=== PATIENT | female | born 1955 | race Caucasian/White ===

== ENCOUNTER → 2016-10-19 | Outpatient (CLI) | payer OTHER ==
[2014-09-25 10:19] VITALS: BP 113/61
== END ==
LOC: RAD 10:11
PROVIDERS: ATTEND Nurse Practitioner Family
DX: Z12.31 Encounter for screening mammogram for malignant neoplasm of breast (principal)
CPT/HCPCS: 77067

== ENCOUNTER → 2016-12-15 | Outpatient (CLI) | payer OTHER ==
[2014-09-25 10:19] VITALS: BP 113/61
== END ==
LOC: LAB 07:09
PROVIDERS: ATTEND Nurse Practitioner Family
DX: R06.02 Shortness of breath (principal)
CPT/HCPCS: 87070; 87205

== ENCOUNTER → 2017-01-02 | Outpatient (CLI) | payer OTHER ==
[2014-09-25 10:19] VITALS: BP 113/61
--- NOTE | 2017-01-02 10:41 | RAD ---
HISTORY: Fatigue Study: PA and lateral chest Comparison: June 18, 2016 Findings: The trachea is midline. The cardiac silhouette is unremarkable. The lungs are clear without focal infiltrate or effusion. The bony thorax is unremarkable. IMPRESSION: 1. No acute cardiopulmonary disease. Reported By:
== END ==
LOC: RAD 10:06
PROVIDERS: ATTEND Nurse Practitioner
DX: R53.83 Other fatigue (principal)
CPT/HCPCS: 71020

== ENCOUNTER → 2017-03-01 | Outpatient (CLI) | payer OTHER ==
[2014-09-25 10:19] VITALS: BP 113/61
--- NOTE | 2017-03-01 16:28 | MRI ---
HISTORY: LEFT ANKLE PAIN AND SWELLING. EXAM: NON CONTRAST MRI EXAM OF THE LEFT ANKLE. TECHNIQUE: Multisequence and multiplanar T1 and T2 weighted sequences of the left ankle were obtained without the administration of IV paramagnetic contrast at 1.5 Grazyna. COMPARISON: No recent comparisons. FINDINGS: The Achilles tendon is intact. The lateral ankle tendons are all intact the deltoid ligament is intac t there is a small subchondral cyst and low-grade osteochondral lesion seen in the talar dome on imag e number 18 of series 901 which measures 7 mm in greatest diameter. There is mild peroneal tendinosis with adjacent bimalleolar edema observed. There is fluid encircling the flexor digitorum longus tend on. No tendon subluxation is seen. The extensor ankle tendons are all intact. There is subchondral cy st formation seen within the lateral malleolus. However, there is diffuse bone marrow edema seen thro ughout the anterior calcaneus and calcaneal body involving the anterior/lateral process of the calcan eus with there is an associated fracture which may be stress related; this is best seen on image numb er 16 of series 701. There is diffuse fluid and altered signal throughout the sinus tarsus which woul d be compatible with concomitant sinus tarsus syndrome as well. The degree of marrow edema makes eval uation for calcaneonavicular coalition difficult but a small fibro-osseous coalition may be present. This will require further follow-up when the edema has improved. All there is also grade 2 ankle join t chondromalacia observed. Degenerative changes are all seen involving the subtalar joint. The planta r fascia is unremarkable in appearance. Bone marrow edema seen within the lateral cuneiform bone may be stress related as well. Dorsal foot edema is appreciated and there is edema throughout the lateral extensor musculature of the foot as well. The spring ligament is grossly intact. No other ankle join t abnormalities are identified on this exam. No artifact seen to suggest a foreign body. IMPRESSION: Linear fracture through the anterior/lateral process of the calcaneus which may be stress related or posttraumatic in nature; please correlate with clinical symptoms. This fracture does not demonstrate displacement, articular extension, or depression. Diffuse bone marrow edema throughout the anterior process of the calcaneus, calcaneal body, and later al cuneiform bone which is probably stress related. Low-grade osteochondral lesion of the talar dome, medially, which measures 7 mm. 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 This will require further follow-up when the edema has improved. Mild ankle and midfoot joint DJD is also observed. No other significant ankle abnormality is observed. Reported By:
== END | disposition home or self-care (01) ==
LOC: RAD 10:02
PROVIDERS: ATTEND Podiatrist Foot & Ankle Surgery
DX: M25.572 Pain in left ankle and joints of left foot (principal); S92.022A Displaced fracture of anterior process of left calcaneus, initial encounter for closed fracture; X58.XXXA Exposure to other specified factors, initial encounter; M94.8X7 Other specified disorders of cartilage, ankle and foot; M19.072 Primary osteoarthritis, left ankle and foot
CPT/HCPCS: 73721

== ENCOUNTER 2017-08-19 10:10 | Emergency (ER) | payer OTHER ==
[2017-08-19 10:24] VITALS: BP 158/73; BMI 38.0
--- NOTE | 2017-08-19 11:13 | DR.EXTPAIN ---
HPI - Time seen Time seen: 11:07 - PCP Primary Care Physician: FRANNY CHINO - Complaint/Symptoms Chief Complaint Doctor Comments: States she was trying to put her boot on because she has a stress fracture of her foot and got dizzy and went forward hitting her head on her oxygen tank this morning prior to coming to the emergency room. States she is having a severe left frontal headache. States this is the worst headache of her life. She denies blurred vision, numbness, nausea, vomiting or weakness. State she has COPD and always has SOB. She denies chest pain or LOC. States she has been able to walk since the fall. States the light hurts her eyes. States the pain is 8 of 10. Chief Complaint:: PT C/O TRYING TO PUT ON HER BOOT AND FALLING AND HITTING HER HEAD ON THE O2 TANK,, PT DENIES ANY LOC, PT C/O ISIDRO,,BR - Nurses notes reviewed Nurses Notes Review: Yes - Source History Provided: Patient - Mode of arrival Mode of Arrival: Wheelchair - Timing Onset of Chief Complaint: 08/19/17 - Context History of: None - Associated signs and symptoms Associated Signs and Symptoms: Headache PMH - PMH Past Medical History: Yes Past Medical History: Anxiety, COPD, Depression, Diabetes Past Medical History Comment: SLEEP APNEA , RLS, ? HEART PROBLEMS , SMALL BLOCKAGE, Past Surgical History: Yes Past Surgical History Comment: HYS, THYROIDECTOMY, ARMS, FEET, NECK AND SIDE, - Family History History of Family Medical Conditions: Yes Family Medical History: Cancer, Hypertension - Social History Does patient currently use any type of tobacco product: Yes Have you used tobacco products in the last 12 months: Yes Type of Tobacco Use: Cigarettes How many years tobacco product used: 44 Does any household member use tobacco: No Alcohol Use: None Do you use any recreational Drugs:: No Lives With: Family Lives Where: Home - infectious screening In the last 2 months have you had wt loss of >10#?: NO Have you had fever, night sweats or hemotysis?: No Have you traveled outside the country in the last 6 months?: No Isolation: Standard ROS - Review of Systems Constitutional: See HPI. negative: No Symptoms Reported, Chills, Diaphoresis, Fever, Malaise, Weakness, Irritable, Fatigue, Loss of Appetite, Other Eyes: No Symptoms Reported, Photophobia. negative: See HPI, Eye Pain, Blurred Vision, Tearing, Discharge, Diplopia, Other ENTM: No Symptoms Reported. negative: See HPI, Ear Pain, Ear Discharge, Pulling on Ears, Hearing Loss, Nose Pain, Nose Discharge, Epistaxis, Nose Congestion, Mouth Pain, Mouth Swelling, Loose Teeth, Drooling, Throat Pain, Throat Swelling, Ear Foreign Body Respiratoy: No Symptoms Reported. negative: See HPI, Productive Cough, Non- Productive Cough, Moist Cough, Dry Cough, Hacking Cough, Barking Cough, Brassy Cough, Orthopnea, Short of Breath, Stridor, Wheezing, Hemoptysis, Other Cardiovascular: No Symptoms Reported. negative: See HPI, Chest Pain, Edema, Palpitations, Syncope, Cyanosis, Skin Mottling, Other Gastrointestinal/Abdominal: No Symptoms Reported. negative: See HPI, Abdominal Pain, Constipation, Diarrhea, Nausea, Vomiting, Food Intolerance, Other Genitourinary: No Symptoms Reported. negative: See HPI, Discharge, Dysuria, Frequency, Hematuria, Pain, Bleeding, Other Neurological: No Symptoms Reported, Headache. negative: See HPI, Anxiety, Depressed, Emotional Problems, Numbness, Paresthesia, Pre-existing Deficit, Seizure, Tingling, Tremors, Weakness, Dizziness, Problems Walking, Speech Problem, Other Musculoskeletal: No Symptoms Reported Integumentary: No Symptoms Reported. negative: See HPI, Change in Color, Change in Hair/Nails, Dryness, Lesions, Lumps, Rash, Itching, Wound, Bruises, Juandice, Other Hematologic/Lymphatic: No Symptoms Reported. negative: See HPI, Anemia, Blood Clots, Easy Bleeding, Easy Bruising, Swollen Glands, Lymphadenopathy, Other Endocrine: No Symptoms Reported Psychiatric: No Symptoms Reported. negative: See HPI, Anxiety, Depression, Hallucinations, Excessive crying, Suicidal, Other PE - Vital Signs Vitals: Temperature 98.2 F Pulse Rate 82 Respiratory Rate 20 Blood Pressure 158/73 O2 Sat by Pulse Oximetry 94 - General Limitations: No Limitations General Appearance: Alert, In No Apparent Distress (moderate). negative: Appears Intoxicated, Anxious, Lethargic, Obtunded, In Distress, Obese, Cachectic , Other - Head Head Exam: Normal Inspection, Atraumatic (left frontal tenderness; no swelling or erythema), Normocephalic - Eyes Eye exam: Normal Appearance, PERRL, EOMI. negative: Scleral Icterus, Conjunctival Injection, Nystagmus, Miosis, Mydrasis, Periorbital Swelling, Periorbital Tenderness, Other - ENT ENT Exam: Normal Exam, Normal Oropharynx, Normal External Ear Exam, Mucous Membranes Moist, TM's Normal Bilaterally - Neck Neck Exam: Normal Inspection, Full ROM, Trachea Midline - Chest Chest Inspection: Normal Inspection, Symmetric Chest Wall Rise - Respiratory Respiratory Exam: Normal Lung Sounds Bilat. negative: Accessory Muscle Use, Chest Wall Tenderness, Prolonged Expiratory Phase, Respiratory Distress, Stridor , Other Respiratory Exam: Bilateral Clear to Auscultation - Cardiovascular Cardiovascular Exam: Regular Rate, Normal Rhythm, Normal Heart Sounds. negative : Bradycardia, Tachycardia, Irregular Rhythm, Systolic Murmur, Diastolic Murmur , Rubs, Gallop, Clicks, JVD, +S1, +S2, +S3, +S4, Other - Abdominal Exam Abdominal Exam: Normal Inspection, Normal Bowel Sounds, Soft. negative: Distention, Tenderness, Guarding, Rebound, Rigidity, Dimnished Bowel Sounds, Hyperactive Bowel Sounds, Hypoactive Bowel Sounds, Organomegaly, Trauma, Incision, Ascites, Mass, Bruit, Pulsatile Mass, Hernia, Other Abdominal Tenderness: negative: RUQ, RLQ, LUQ, LLQ, Epigastrium, Suprapubic, Diffuse, Mild, Moderate, Severe, Other - Extremities Extremities Exam: Normal Inspection, Full ROM, Normal Capillary Refill. negative: Tenderness, Edema, Joint Swelling, Calf Tenderness, Other - Upper Extremities Shoulder Exam: Normal Inspection, Full ROM. negative: Tenderness, Swelling, Abrasion, Laceration, Ecchymosis, Deformity, Crepitus, Dislocation, Erythema, Tenderness over AC Joint, Other Arm Exam: Normal Inspection, Full ROM. negative: Tenderness, Swelling, Abrasion , Laceration, Ecchymosis, Deformity, Crepitus, Erythema, Other Elbow Exam: Normal Inspection, Full ROM. negative: Tenderness, Swelling, Abrasion, Laceration, Ecchymosis, Deformity, Crepitus, Dislocation, Erythema, Effusion, Pain w/ pronation, Pain w/ Spuination, Tenderness over Radial Head, Other Forearm Exam: Normal Inspection, Full ROM. negative: Tenderness, Swelling, Abrasion, Laceration, Ecchymosis, Deformity, Crepitus, Erythema, Dislocation, Other Hand Exam: Normal Inspection, Full ROM. negative: Tenderness, Swelling, Abrasion, Laceration, Ecchymosis, Skin Avulsion, Deformity, Crepitus, Erythema, Dislocation, Amputation, Nail Avulsion, Subungual Hematoma, Other Neuromotor Exam: Normal Exam. negative: Wrist Extension, Thumb Opposition, Thumb IP Flexion, Thumb Adduction, Fingers 2-5 Abduction, Other Neurosensory Exam: Normal Exam Hand Tendon Exam: negative: Flexor Digitorium Profundus (Location), Flexor Digitorium Superficialis (Location), Extensor Tendon (Location), Other Upper Ext. Vascular Exam: Capillary Refill, Radial Pulse (normal) - Lower Extremities Hip/Pelvis Exam: Normal Inspection, Full ROM. negative: Tenderness, Swelling, Abrasion, Laceration, Ecchymosis, Deformity, Crepitus, Dislocation, Erythema, External Rotation, Internal Rotation, Shortening, Pelvis Stable, Other Upper Leg Exam: Normal Inspection, Full ROM. negative: Tenderness, Swelling, Abrasion, Laceration, Ecchymosis, Deformity, Crepitus, Dislocation, Erythema, Other Knee Exam: Normal Inspection, Full ROM. negative: Tenderness, Swelling, Abrasion, Laceration, Ecchymosis, Deformity, Crepitus, Dislocation, Erythema, Effusion, Anterior Drawer Sign, Posterior Draw Sign, Pain with Valgus, Laxity with Valgus, Pain with Varus, Knee Extension Intact, Other Lower Leg Exam: Normal Inspection, Full ROM. negative: Tenderness, Swelling, Abrasion, Laceration, Deformity, Ecchymosis, Crepitus, Dislocation, Erythema, Palpable Cord, Homans' Sign, Achilles Tendon Intact, Other Ankle Exam: Normal Inspection, Full ROM. negative: Tenderness, Swelling, Abrasion, Laceration, Ecchymosis, Deformity, Crepitus, Dislocation, Erythema, Tenderness over talofibular lig, Anterior Draw Sign, Other Foot/Toe Exam: Normal Inspection, Full ROM. negative: Tenderness, Swelling, Abrasion, Laceration, Ecchymosis, Deformity, Crepitus, Dislocation, Erythema, Amputation, Puncture Wound, Foreign Body, Calcaneal Tenderness, Nail Avulsion, Other Neurovascular/Tendon Exam: Normal Capillary Refill Gait Exam: Not Tested/Not Observed - Back Back Exam: Normal Inspection, Full ROM - Neurological Neurological Exam: Alert, Oriented X3, CN II-XII Intact, Reflexes Normal. negative: Normal Gait (gait not tested) - Psychiatric Psychiatric Exam: Normal Affect, Normal Mood. negative: Depressed, Agitated, Anxious, Flat Affect, Manic, Homicidal Ideation, Suicidal Ideation, Other - Skin Skin Exam: Warm, Dry, Intact, Normal Color Type of Lesion: negative: Rash, Abscess, Laceration, Foreign Body, Bite/Sting, Abrasion, Other Distribution: negative: Generalized, Involves Palms/Soles, Head, Face, Neck, Thorax, Chest, Back, Abdomen, Genitals, LUE, LLE, RUE, RLE, Other Description: negative: Size, Tenderness, Erythematous, Swelling, Macular, Papular, Vesicular, Blisters, Cofluent, Bullous, Petechial, Purpuric, Urticarial , Crusting, Discharge, Fluctuant, Indurated, Other ROR - Labs Reviewed Laboratory Results Reviewed?: Yes (All x-ray results reviewed and discussed with patient) - XRAY XRAY Interpreted by: Radiologist (CT head: No acute intracranial process can be identified.) - Diagnosis Discharge Problem: Contusion of other part of head, initial encounter Headache Qualifiers: Headache type: unspecified - Discharge Plan Disposition: 01 HOME, SELF-CARE Condition: Stable - Follow ups/Referrals Follow ups/Referrals: MALINI MIXON [Primary Care Provider] - 3 days - Instructions Instructions: Head Injury, Adult, Contusion
--- NOTE | 2017-08-19 11:43 | CT ---
HISTORY: Altered mental status Study: CT brain without contrast Comparison: None Technique: Multiple axial images of the brain were obtained from the skull base to the vertex without administra tion of IV contrast. Findings: No acute intraparenchymal hemorrhage or mass can be identified. No extra-axial fluid collections are seen. No alteration in the attenuation of the brain parenchyma can be identified to suggest acute o r subacute ischemic change. The ventricular system is symmetric and nondilated. The extracranial st ructures demonstrates some prominent nodes in the right parotid gland of uncertain etiology or signif icance. IMPRESSION: 1. No acute intracranial process can be identified. Reported By:
[2017-08-19] MEDS ORDERED: DEMEROL INJ IM ONE (12:11)
[2017-08-19] MEDS ORDERED: PHENERGAN INJ 25 MG IM ONE (12:12)
[2017-08-19] MEDS ORDERED: DEMEROL INJ ONE (12:25)
[2017-08-19] MEDS ORDERED: PHENERGAN INJ 25 MG ONE (12:25)
== END 2017-08-19 12:57 | disposition home or self-care (01) ==
LOC: ER 10:27
DX: S00.93XA Contusion of unspecified part of head, initial encounter (principal); R51 Headache; W01.198A Fall on same level from slipping, tripping and stumbling with subsequent striking against other object, initial encounter; Y92.9 Unspecified place or not applicable
CPT/HCPCS: 70450; 96372; 99282; 99283; J2175; J2550

== ENCOUNTER 2017-09-15 12:01 | Emergency (ER) | payer OTHER ==
[2017-09-15 12:11] VITALS: BMI 34.9
[2017-09-15] MEDS ORDERED: DUONEB 0.5 MG/3 MG NEB ONE (12:21)
--- NOTE | 2017-09-15 12:22 | DR.GENAD ---
HPI - Complaint/Symptoms Chief Complaint Doctors Comments: PATIENT Chief Complaint:: PT C/O WEAKNESS AND NOT FEELING WELL. PT STATES SHE HAS NOT BEEN FEELING WELL SINCE SHE GOT UP THIS AM. PT WAS BROUGHT IN BY EMS STAFF. PT IS VERY SLUGGISH WITH SPEACH AND NOTED HER PUPILS TO BE VERY SLUGGISH REACTING TO LIGHT. - Nurses notes reviewed Nurses Notes Review: Yes - Source History Provided: Patient - Mode of Arrival Mode of Arrival: Wheelchair - Timing Onset of Chief Complaint: 09/15/17 Came on: Suddenly - Duration Duration: Intermittent Duration: Hours - Severity Severity: Moderate PMH - PMH Past Medical History: Yes Past Medical History: Anxiety, COPD, Depression, Diabetes, Hypertension, Hypothyroidism Past Surgical History: Yes - Family History History of Family Medical Conditions: Yes Family Medical History: Cancer, Hypertension - Social History Does patient currently use any type of tobacco product: Yes Have you used tobacco products in the last 12 months: Yes Type of Tobacco Use: Cigarettes Does any household member use tobacco: Yes Alcohol Use: None Do you use any recreational Drugs:: No Lives With: Family Lives Where: Home - infectious screening In the last 2 months have you had wt loss of >10#?: NO Have you had fever, night sweats or hemotysis?: No Have you traveled outside the country in the last 6 months?: No Isolation: Standard PE - Vital Signs Vitals: Temperature 99.9 F Pulse Rate [Right Radial] 71 Pulse Rate 77 Respiratory Rate 20 Blood Pressure [Right Arm] 136/60 Blood Pressure 159/70 O2 Sat by Pulse Oximetry 95 ROR - Labs Reviewed Result Diagrams: 09/15/17 12:43 09/15/17 12:43 Laboratory: WBC 8.7 X10^3/uL (3.6-10.0) 09/15/17 12:43 RBC 4.34 X10^6/uL (3.5-5.4) 09/15/17 12:43 Hgb 12.2 g/dL (12.0-16.0) 09/15/17 12:43 Hct 36.2 % (36.0-47.0) 09/15/17 12:43 MCV 83.3 fL (80.0-100.0) 09/15/17 12:43 MCH 28.2 pg (27.0-34.0) 09/15/17 12:43 MCHC 33.8 g/dL (33.0-35.0) 09/15/17 12:43 RDW 15.4 % (11.6-16.5) 09/15/17 12:43 Plt Count 284 X10^3/uL (150.0-450.0) 09/15/17 12:43 MPV 7.6 fL (7.4-11.0) 09/15/17 12:43 Neut % (Auto) 69.1 % (42.0-75.0) 09/15/17 12:43 Lymph % (Auto) 25.2 % (21.0-51.0) 09/15/17 12:43 Harris % (Auto) 5.1 % (0.0-13.0) 09/15/17 12:43 Eos % (Auto) 0.1 % (0.9-2.9) L 09/15/17 12:43 Baso % (Auto) 0.5 % (0.2-1.0) 09/15/17 12:43 Neut # (Auto) 6.0 x10^3/uL (2.2-4.8) H 09/15/17 12:43 Lymph # (Auto) 2.2 X10^3/uL (1.3-2.9) 09/15/17 12:43 Harris # (Auto) 0.4 x10^3/uL (0.3-0.8) 09/15/17 12:43 Eos # (Auto) 0.0 x10^3/uL (0.0-0.2) 09/15/17 12:43 Baso # (Auto) 0.0 X10^3/uL (0.0-0.1) 09/15/17 12:43 Absolute Nucleated RBC 0.0 /100WBC 09/15/17 12:43 D-Dimer 594 ng/mL (0-400) H* 09/15/17 12:43 Sample Site rrad 09/15/17 12:25 ABG pH 7.360 (7.35-7.45) 09/15/17 12:25 ABG pCO2 52.0 mmHg (35.0-45.0) H* 09/15/17 12:25 ABG pO2 71.0 mmHg (80.0-100.0) L 09/15/17 12:25 ABG HCO3 29.4 mmol/L (22-26) H 09/15/17 12:25 ABG O2 Saturation 93.0 % (90-100) 09/15/17 12:25 ABG Base Excess 3.0 mmol/L (-2.0-2.0) H 09/15/17 12:25 Enoc Test pos 09/15/17 12:25 A-a Gradient 64.0 mmHg 09/15/17 12:25 FiO2 28.000 09/15/17 12:25 Blood Gas Comments etelvina well 09/15/17 12:25 Sodium 135 mmol/L (136-145) L 09/15/17 12:43 Corrected Sodium 137 mmol/L (136-145) 09/15/17 12:43 Potassium 4.9 mmol/L (3.5-5.1) 09/15/17 12:43 Chloride 99 mmol/L (98-107) 09/15/17 12:43 Carbon Dioxide 27.7 mmol/L (21-32) 09/15/17 12:43 BUN 18 mg/dL (7-18) 09/15/17 12:43 Creatinine 1.30 mg/dL (0.55-1.02) H 09/15/17 12:43 Est GFR (MDRD) Af Amer 54 (>60) L 09/15/17 12:43 Est GFR (MDRD) Non-Af 44 (>60) L 09/15/17 12:43 Glucose 202 mg/dL (65-99) H 09/15/17 12:43 Lactic Acid 2.3 mmol/L (0.4-2.0) H 09/15/17 12:43 Calcium 8.7 mg/dL (8.5-10.1) 09/15/17 12:43 Corrected Calcium 9.3 mg/dL (8.5-10.1) 09/15/17 12:43 Total Bilirubin 0.40 mg/dL (0.2-1.0) 09/15/17 12:43 AST 18 Units/L (15-37) 09/15/17 12:43 ALT 30 Units/L (12-78) 09/15/17 12:43 Alkaline Phosphatase 123 Units/L (46-116) H 09/15/17 12:43 Creatine Kinase 48 Units/L (26-192) 09/15/17 12:43 CK-MB (CK-2) < 1.0 ng/mL (0-4.0) 09/15/17 12:43 CK/CKMB % Calc 2.1 % (<4) 09/15/17 12:43 Troponin I < 0.02 ng/mL (0-1.5) 09/15/17 12:43 Total Protein 7.4 g/dL (6.4-8.2) 09/15/17 12:43 Albumin 3.3 g/dL (3.4-5.0) L 09/15/17 12:43 Globulin 4.1 g/dL (2.5-4.5) 09/15/17 12:43 Albumin/Globulin Ratio 0.8 Ratio (1.1-2.1) L 09/15/17 12:43 Specimen Type Catherized urine 09/15/17 13:11 Urine Color Dark yellow (YELLOW) 09/15/17 13:11 Urine Appearance Hazy (CLEAR) 09/15/17 13:11 Urine pH 5.0 (5.0 - 8.0) 09/15/17 13:11 Ur Specific [place] 1.025 (1.000-1.030) 09/15/17 13:11 Urine Protein 2+ (NEGATIVE) 09/15/17 13:11 Urine Glucose (UA) Negative (NEGATIVE) 09/15/17 13:11 Urine Ketones Negative (NEGATIVE) 09/15/17 13:11 Urine Occult Blood Negative (NEGATIVE) 09/15/17 13:11 Urine Nitrite Negative (NEGATIVE) 09/15/17 13:11 Urine Bilirubin Negative (NEGATIVE) 09/15/17 13:11 Urine Urobilinogen 1+ (NORMAL) 09/15/17 13:11 Ur Leukocyte Esterase 1+ (NEGATIVE) 09/15/17 13:11 Urine RBC None seen /HPF (NONE SEEN) 09/15/17 13:11 Urine WBC 0-2 /HPF (NONE SEEN) 09/15/17 13:11 Ur Squamous Epith Cells Few /HPF (NEGATIVE) 09/15/17 13:11 Urine Bacteria Negative /HPF (NEGATIVE) 09/15/17 13:11 Urine Mucus Few /HPF (NEGATIVE) 09/15/17 13:11 Ur Culture Indicated? No/not indicated 09/15/17 13:11 Urine Opiates Screen Positive (NEG=<300) A 09/15/17 13:11 Urine Methadone Screen Negative (NEG=<300) 09/15/17 13:11 Ur Barbiturates Screen Negative (NEG=<200) 09/15/17 13:11 Ur Phencyclidine Scrn Negative (NEG=<25) 09/15/17 13:11 Ur Amphetamines Screen Negative (NEG=<1000) 09/15/17 13:11 U Benzodiazepines Scrn Positive (NEG=<200) A 09/15/17 13:11 Urine Cocaine Screen Negative (NEG=<300) 09/15/17 13:11 U Marijuana (THC) Screen Negative (NEG=<50) 09/15/17 13:11 - Discharge Plan Disposition: 07 AGAINST MEDICAL ADVICE Condition: Stable - Follow ups/Referrals Follow ups/Referrals: MALINI MIXON [Primary Care Provider] - 3 days - Instructions
[2017-09-15 12:29] LABS: ABG HCO3 29.4 mmol/L (22-26)
[2017-09-15 12:30] LABS: ABG ALLEN TEST pos
--- NOTE | 2017-09-15 12:42 | RAD ---
Indication: Shortness of breath Exam: Portable chest Comparison: 01/02/2017 Findings: The heart is borderline enlarged but unchanged. The pulmonary vessels are normal. There is overlying EKG lead artifact. No consolidation or effusion is seen. The bones are intact. Impression: Overlying artifact otherwise, stable with no acute abnormality seen. Reported By:
--- NOTE | 2017-09-15 12:43 | CT ---
History: Altered mental status Study: CT head without contrast. Sagittal and coronal reformations were provided. Comparison: August 19, 2017 Findings: The ventricles and sulci are normal in size and configuration. There is no hemorrhage or ma ss or edema and there is no subdural collection of fluid. The calvarium is intact. The paranasal sinu ses are clear. There is a 1.17 cm subcutaneous nodule just inferior and anterior to the right externa l artery canal probably representing a lymph node. Impression: No acute intracranial disease Reported By:
[2017-09-15 13:01] LABS: BASOPHILS % (AUTO) 0.5 % (0.2-1.0); EOSINOPHILS % (AUTO) 0.1 % (0.9-2.9); HEMATOCRIT 36.2 % (36.0-47.0); HEMOGLOBIN 12.2 g/dL (12.0-16.0); LYMPHOCYTES # (AUTO) 2.2 X10^3/uL (1.3-2.9); LYMPHOCYTES % (AUTO) 25.2 % (21.0-51.0); MEAN CORPUSCULAR HEMOGLOBIN 28.2 pg (27.0-34.0); MEAN CORPUSCULAR HGB CONC 33.8 g/dL (33.0-35.0); MEAN CORPUSCULAR VOLUME 83.3 fL (80.0-100.0); MEAN PLATELET VOLUME 7.6 fL (7.4-11.0); MONOCYTES # (AUTO) 0.4 x10^3/uL (0.3-0.8); MONOCYTES % (AUTO) 5.1 % (0.0-13.0); NEUTROPHILS % (AUTO) 69.1 % (42.0-75.0); PLATELET COUNT 284 X10^3/uL (150.0-450.0); RED BLOOD COUNT 4.34 X10^6/uL (3.5-5.4); RED CELL DISTRIBUTION WIDTH 15.4 % (11.6-16.5); WHITE BLOOD COUNT 8.7 X10^3/uL (3.6-10.0)
[2017-09-15] MEDS ORDERED: DUONEB 0.5 MG/3 MG ONE (13:14)
[2017-09-15 13:20] LABS: BLOOD UREA NITROGEN 18 mg/dL (7-18); CALCIUM 8.7 mg/dL (8.5-10.1); CARBON DIOXIDE 27.7 mmol/L (21-32); CHLORIDE 99 mmol/L (98-107); COR NA(FOR HYPERGLY) 137 mmol/L (136-145); SODIUM 135 mmol/L (136-145); TROPONIN I < 0.02 ng/mL (0-1.5); eGFR BLACK RACES 54 (>60); eGFR NON BLACK RACES 44 (>60)
[2017-09-15 13:21] LABS: BILIRUBIN,URINE NEGATIVE (NEGATIVE); BLOOD/HEMOGLOBIN,URINE NEGATIVE (NEGATIVE); GLUCOSE, URINE NEGATIVE (NEGATIVE); KETONES,URINE NEGATIVE (NEGATIVE); LEUKOCYTE ESTERASE ,URINE 1+ (NEGATIVE); NITRITES,URINE NEGATIVE (NEGATIVE); PROTEIN,URINE 2+ (NEGATIVE); UROBILINOGEN,URINE 1+ (NORMAL)
[2017-09-15 13:24] LABS: ALANINE AMINOTRANSFERASE 30 Units/L (12-78); ALBUMIN 3.3 g/dL (3.4-5.0); ALKALINE PHOSPHATASE 123 Units/L (46-116); ASPARTATE AMINO TRANSFERASE 18 Units/L (15-37); CKMB % 2.1 % (<4); COR CA(FOR HYPOALB) 9.3 mg/dL (8.5-10.1); CREATINE KINASE 48 Units/L (26-192); CREATINE KINASE MB < 1.0 ng/mL (0-4.0); TOTAL PROTEIN 7.4 g/dL (6.4-8.2)
[2017-09-15 13:30] LABS: APPEARANCE,URINE HAZY (CLEAR); BACTERIA,URINE NEGATIVE /HPF (NEGATIVE); COLOR,URINE DARK YELLOW (YELLOW); MUCUS,URINE FEW /HPF (NEGATIVE); RBC,URINE NONE SEEN /HPF (NONE SEEN); SQUAMOUS EPITHELIAL CELL,UR FEW /HPF (NEGATIVE)
[2017-09-15] MEDS ORDERED: NS 100 ML IV 100 ML IV ONE (14:11)
[2017-09-15 14:20] VITALS: BP 136/60
--- NOTE | 2017-09-15 15:35 | CT ---
History: Shortness of breath and elevated D-dimer Study: CTA chest utilizing 70 mL Omnipaque 350 IV contrast. Sagittal and coronal and axial MIPS of th e pulmonary arteries were displayed. Findings: There is a minimal patchy infiltrate at the right lung base posteriorly. There is no effusi on. There is no mediastinal or hilar adenopathy demonstrated. No pulmonary embolus is demonstrated. T he visualized upper abdomen is unremarkable status post cholecystectomy. No significant bony abnormal ity is suggested. Impression: Minimal pneumonitis suggested at the right lung base posteriorly. 2. No evidence for pulmonary embolus Reported By:
== END 2017-09-15 16:55 | disposition left against medical advice (07) ==
LOC: ER 12:04
DX: R53.1 Weakness (principal)
CPT/HCPCS: 36415; 36600; 51702; 70450; 71045; 71275; 80053; 80307; 81001; 82550; 82553; 82803; 83605; 84484; 85025; 85378; 87040; 93005; 93010; 94640; 96365; 99282; 99283; A4222; G0434; J7620

== ENCOUNTER → 2017-10-02 | Outpatient (CLI) | payer OTHER ==
[2017-09-15 14:20] VITALS: BP 136/60
--- NOTE | 2017-10-02 09:58 | MRI ---
History: Ankle pain and history of stress fracture. Exam: Non contrast MRI exam of the left ankle. Technique: Multisequence and multiplanar T1 and T2 weighted sequences of the left ankle were obtained without the administration of IV paramagnetic contrast at 1.5 Grazyna. Comparison: March 01, 2017. Findings: There is a healing stress fracture of the anterior/lateral calcaneal process. The anterior/lateral ca lcaneal process is elongated and bowel no solid bony tarsal coalition is seen, a fibro-osseous coalit ion of the calcaneonavicular articulation could be present. There remain subchondral cyst formation s een within the distal fibula there is an unchanged low-grade 7 mm osteochondral lesion of the medial talar dome on image number 10 of series 1001. There are chronic tear is of the anterior talofibular l igament and calcaneofibular ligament. There is moderate distal tibia fibular joint osteoarthritis, po ssibly posttraumatic in nature. There is a chronic strain of the posterior talofibular ligament. Ther e is mild tendinosis and tenosynovitis of the posterior tibial and flexor digitorum longus tendons. M ild peroneal tendinosis is also seen. There is diffuse soft tissue swelling along the medial malleolu s and medial foot. The Lisfranc joint and Lisfranc ligament are grossly intact. There is [id number] rate ankle and midfoot joint DJD. The degree of bone marrow edema seen throughout the midfoot and hin dfoot bones previously has essentially resolved. Nor other ankle joint injuries or changes from the p rior MRI observed. Impression: Healed stress fracture of the anterior/lateral calcaneal process with resolved bone marrow edema in t he midfoot bones and hindfoot bones as well. Diffuse soft tissue swelling/edema throughout the medial malleolus and medial foot with moderate midf oot and ankle joint osteoarthritis/degenerative change. Stable low-grade 7 mm osteochondral lesion of the medial talar dome. Mild tendinosis and tenosynovitis of the posterior tibial and FDL tendons. Chronic/old injuries/tears of the anterior talofibular ligament and calcaneofibular ligament with mod erate distal tibiofibular joint osteoarthritis. Distal fibular subchondral cyst formation. 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 No other changes observed. Reported By:
== END | disposition home or self-care (01) ==
LOC: RAD 08:13
PROVIDERS: ATTEND Orthopaedic Surgery
DX: M25.572 Pain in left ankle and joints of left foot (principal); R60.0 Localized edema
CPT/HCPCS: 73721

== ENCOUNTER 2018-01-12 13:44 | Inpatient (IN) ==
--- NOTE | 2018-01-12 16:56 | RAD ---
HISTORY: Acute on chronic shortness of breath. Study: Portable chest. Comparison: Chest x-ray dated September 15, 2017. Findings: The trachea is midline. The cardiac silhouette is unchanged. No obvious focal consolidation, pleura l effusion, or pneumothorax. The bony thorax is unremarkable. IMPRESSION: No acute cardiopulmonary disease. Reported By:
[2018-01-12 17:05] LABS: BASOPHILS # (AUTO) 0.1 X10^3/uL (0.0-0.1); BASOPHILS % (AUTO) 0.9 % (0.2-1.0); EOSINOPHILS % (AUTO) 0.1 % (0.9-2.9); HEMATOCRIT 36.8 % (36.0-47.0); HEMOGLOBIN 12.3 g/dL (12.0-16.0); LYMPHOCYTES # (AUTO) 2.2 X10^3/uL (1.3-2.9); LYMPHOCYTES % (AUTO) 22.7 % (21.0-51.0); MEAN CORPUSCULAR HEMOGLOBIN 27.6 pg (27.0-34.0); MEAN CORPUSCULAR HGB CONC 33.4 g/dL (33.0-35.0); MEAN CORPUSCULAR VOLUME 82.6 fL (80.0-100.0); MEAN PLATELET VOLUME 7.4 fL (7.4-11.0); MONOCYTES # (AUTO) 0.4 x10^3/uL (0.3-0.8); MONOCYTES % (AUTO) 4.2 % (0.0-13.0); NEUTROPHILS # (AUTO) 6.9 x10^3/uL (2.2-4.8); NEUTROPHILS % (AUTO) 72.1 % (42.0-75.0); PLATELET COUNT 296 X10^3/uL (150.0-450.0); RED BLOOD COUNT 4.45 X10^6/uL (3.5-5.4); RED CELL DISTRIBUTION WIDTH 15.7 % (11.6-16.5); WHITE BLOOD COUNT 9.5 X10^3/uL (3.6-10.0)
--- NOTE | 2018-01-12 17:11 | DR.SOBA ---
HPI Time Seen Time Seen by Provider: 01/12/18 16:50 Primary Care Physician Primary Care Physician: AMOS MORALES HPI Comment HPI Comment: SEE IN NEIGHBORHOOD COORDINATOR OFFICE FOUND TO HAVE INFLAME THROAT. STREP TEST NEGATIVE. PATIENT CONTINUE TO HAVE PRODUCTIVE COUGH, CLEAR SPUTUM. NO FEVER. SOB WORSE TODAY. STARTED HAVING HOARSENESS. Complaints Chief Complaint Doctors Comments: INCREASING SOB AND PRODUCTIVE COUGH TIMES SEVERAL DAY. SOB WORSE TODAY. Chief Complaint:: SOB- REFERRED BY AMOS MORALES Reviewed Nurses Notes Reviewed: Yes Source History Provided: Patient Mode of Arrival Mode of Arrival: Ambulatory Timing Onset of Chief Complaint: 01/12/18 Duration Duration: Days Context Onset:: At Rest and With Light Exertion PE Risk Factors:: None History of:: COPD and CHF Currently on:: Inhaled Bronchodilators Prehospital Care:: Inhaled B2 Modifying Factors Worsens:: Lying Flat and Other (COUGHING.) Associated Signs and Symptoms Associated Signs and Symptoms: Cough, Sore Throat and Chest Pain If Chest Pain Quality: Pleuritic (TIGHTNESS.) Location: Right Upper Chest, Right Lower Chest, Left Upper Chest, Left Lower Chest and Chest Wall If Cough Cough: Productive and Clear PMH PMH Past Medical History: Yes Past Medical History: Anxiety, CHF, COPD, Depression, Diabetes, Hypertension and Hypothyroidism Past Surgical History: Yes Surgical History: Hysterectomy, Ortho Surgery and Thyroidectomy Past Surgical History Comment: BACK OF NECK LEFT SIDE OF NECK FEET YAAKOV ARM SURGERY BACK SURGERY X 4 Family History History of Family Medical Conditions: Yes Family Medical History: Cancer and Hypertension Social History Does patient currently use any type of tobacco product: Yes Have you used tobacco products in the last 12 months: Yes Type of Tobacco Use: Cigarettes How many years tobacco product used: 40 Does any household member use tobacco: Yes Alcohol Use: None Do you use any recreational Drugs:: No Lives With: Spouse Lives Where: Home infectious screening In the last 2 months have you had wt loss of >10#?: NO Have you had fever, night sweats or hemotysis?: No Have you traveled outside the country in the last 6 months?: No ROS Review of Systems Constitutional: Weakness and Fatigue Eyes: No Symptoms Reported ENTM: Nose Congestion and Throat Pain; negative Nose Discharge Respiratoy: Productive Cough and Short of Breath; negative Hemoptysis Cardiovascular: Chest Pain; negative Edema Genitourinary: No Symptoms Reported Neurological: No Symptoms Reported and Weakness Musculoskeletal: Muscle Pain Integumentary: No Symptoms Reported Hematologic/Lymphatic: Easy Bleeding and Easy Bruising Endocrine: negative Flushing Psychiatric: No Symptoms Reported All Other Systems: Reviewed and Negative PE Vital Signs Vitals: Temperature 97 F Pulse Rate [Apical] 64 Pulse Rate [Right Radial] 68 Pulse Rate 72 Respiratory Rate 20 Blood Pressure [Right Arm] 104/52 Blood Pressure 85/50 O2 Sat by Pulse Oximetry 95 General Limitations: No Limitations General Appearance: Alert, Anxious and In Distress Head Head Exam: Normal Inspection and Atraumatic Eyes Eye exam: Normal Appearance, PERRL and EOMI; negative Scleral Icterus and Conjunctival Injection ENT ENT Exam: Normal Exam, Normal External Ear Exam, Mucous Membranes Moist and TM' s Normal Bilaterally; negative Normal Oropharynx (THROAT RED. HORSENESS.) Neck Neck Exam: Normal Inspection and Trachea Midline Chest Chest Inspection: Normal Inspection and Symmetric Chest Wall Rise Respiratory Respiratory Exam: Bilateral: Rhonchi and Lower: Rhonchi Cardiovascular Cardiovascular Exam: Regular Rate, Normal Rhythm and Normal Heart Sounds Abdominal Exam Abdominal Exam: Normal Bowel Sounds and Soft; negative Tenderness Extremities Extremities Exam: Normal Inspection Back Back Exam: Paraspinal Tenderness Neurologic Neurological Exam: Alert, Oriented X3 and CN II-XII Intact; negative Motor Sensory Deficit Psychiatric Psychiatric Exam: Normal Affect and Normal Mood Skin Skin Exam: Warm, Dry, Intact and Normal Color MDM Additional Information Obtained Additional Information Obtained From: Family Differential Diagnosis Differential Diagnosis: CHF, COPD, Mycardial Infarction, Pneumonia, Pneumothorax , Pulmonary embolism, Respiratory Insufficiency, Sinusitis and URI COURSE Treatment Treatment: SEE ORDERS. PATIENT DID NOT WISH TO BE ADMITTED TO HOSPITAL FOR OBS. SIGN TO INDICATE INFORME CONSENT. Education/Counseling Education/Counseling: Patient, Family and Education Educated On: Diagnosis and Needs for Follow Up ROR Labs Reviewed Laboratory Results Reviewed?: Yes Result Diagrams: 01/13/18 06:00 01/13/18 06:00 Laboratory: WBC 6.6 X10^3/uL (3.6-10.0) 01/13/18 06:00 RBC 4.29 X10^6/uL (3.5-5.4) 01/13/18 06:00 Hgb 11.9 g/dL (12.0-16.0) L 01/13/18 06:00 Hct 36.2 % (36.0-47.0) 01/13/18 06:00 MCV 84.3 fL (80.0-100.0) 01/13/18 06:00 MCH 27.6 pg (27.0-34.0) 01/13/18 06:00 MCHC 32.8 g/dL (33.0-35.0) L 01/13/18 06:00 RDW 16.0 % (11.6-16.5) 01/13/18 06:00 Plt Count 260 X10^3/uL (150.0-450.0) 01/13/18 06:00 MPV 7.5 fL (7.4-11.0) 01/13/18 06:00 Neut % (Auto) 63.1 % (42.0-75.0) 01/13/18 06:00 Lymph % (Auto) 31.0 % (21.0-51.0) 01/13/18 06:00 [place] % (Auto) 5.5 % (0.0-13.0) 01/13/18 06:00 Eos % (Auto) 0.2 % (0.9-2.9) L 01/13/18 06:00 Baso % (Auto) 0.2 % (0.2-1.0) 01/13/18 06:00 Neut # (Auto) 4.2 x10^3/uL (2.2-4.8) 01/13/18 06:00 Lymph # (Auto) 2.0 X10^3/uL (1.3-2.9) 01/13/18 06:00 [place] # (Auto) 0.4 x10^3/uL (0.3-0.8) 01/13/18 06:00 Eos # (Auto) 0.0 x10^3/uL (0.0-0.2) 01/13/18 06:00 Baso # (Auto) 0.0 X10^3/uL (0.0-0.1) 01/13/18 06:00 Absolute Nucleated RBC 0.0 /100WBC 01/13/18 06:00 D-Dimer 220 ng/mL (0-400) 01/12/18 16:55 Sample Site Rr 01/12/18 17:00 ABG pH 7.360 (7.35-7.45) 01/12/18 17:00 ABG pCO2 57.0 mmHg (35.0-45.0) H* 01/12/18 17:00 ABG pO2 70.0 mmHg (80.0-100.0) L 01/12/18 17:00 ABG HCO3 32.2 mmol/L (22-26) H* 01/12/18 17:00 ABG O2 Saturation 93.0 % (90-100) 01/12/18 17:00 ABG Base Excess 5.3 mmol/L (-2.0-2.0) H 01/12/18 17:00 Enoc Test Pos 01/12/18 17:00 A-a Gradient 87.0 mmHg 01/12/18 17:00 FiO2 32.000 01/12/18 17:00 Blood Gas Comments Merlyn well ej 01/12/18 17:00 Sodium 139 mmol/L (136-145) 01/13/18 06:00 Corrected Sodium 141 mmol/L (136-145) 01/13/18 06:00 Potassium 4.6 mmol/L (3.5-5.1) 01/13/18 06:00 Chloride 104 mmol/L (98-107) 01/13/18 06:00 Carbon Dioxide 31.1 mmol/L (21-32) 01/13/18 06:00 BUN 16 mg/dL (7-18) 01/13/18 06:00 Creatinine 1.07 mg/dL (0.55-1.02) H 01/13/18 06:00 Est GFR (MDRD) Af Amer > 60 (>60) 01/13/18 06:00 Est GFR (MDRD) Non-Af 55 (>60) L 01/13/18 06:00 Glucose 164 mg/dL (65-99) H 01/13/18 06:00 POC Glucose (mg/dL) 159 mg/dL (65-99) H 01/13/18 05:56 Lactic Acid 0.9 mmol/L (0.4-2.0) 01/12/18 23:48 Calcium 7.9 mg/dL (8.5-10.1) L 01/13/18 06:00 Corrected Calcium 8.9 mg/dL (8.5-10.1) 01/13/18 06:00 Total Bilirubin 0.40 mg/dL (0.2-1.0) 01/13/18 06:00 AST 14 Units/L (15-37) L 01/13/18 06:00 ALT 50 Units/L (12-78) 01/13/18 06:00 Alkaline Phosphatase 151 Units/L (46-116) H 01/13/18 06:00 Creatine Kinase 42 Units/L (26-192) 01/13/18 06:00 CK-MB (CK-2) < 1.0 ng/mL (0-4.0) 01/13/18 06:00 CK/CKMB % Calc 2.4 % (<4) 01/13/18 06:00 Troponin I < 0.02 ng/mL (0-1.5) 01/13/18 06:00 B-Natriuretic Peptide 26.9 pg/mL (0-79) 01/12/18 16:55 Total Protein 6.4 g/dL (6.4-8.2) 01/13/18 06:00 Albumin 2.7 g/dL (3.4-5.0) L 01/13/18 06:00 Globulin 3.7 g/dL (2.5-4.5) 01/13/18 06:00 Albumin/Globulin Ratio 0.7 Ratio (1.1-2.1) L 01/13/18 06:00 Specimen Type Catherized urine 01/12/18 23:44 Urine Color Yellow (YELLOW) 01/12/18 23:44 Urine Appearance Clear (CLEAR) 01/12/18 23:44 Urine pH 6.0 (5.0 - 8.0) 01/12/18 23:44 Ur Specific [place] 1.010 (1.000-1.030) 01/12/18 23:44 Urine Protein 1+ (NEGATIVE) 01/12/18 23:44 Urine Glucose (UA) Negative (NEGATIVE) 01/12/18 23:44 Urine Ketones Negative (NEGATIVE) 01/12/18 23:44 Urine Occult Blood Negative (NEGATIVE) 01/12/18 23:44 Urine Nitrite Negative (NEGATIVE) 01/12/18 23:44 Urine Bilirubin Negative (NEGATIVE) 01/12/18 23:44 Urine Urobilinogen Normal (NORMAL) 01/12/18 23:44 Ur Leukocyte Esterase Negative (NEGATIVE) 01/12/18 23:44 Urine RBC None seen /HPF (NONE SEEN) 01/12/18 23:44 Urine WBC None seen /HPF (NONE SEEN) 01/12/18 23:44 Ur Squamous Epith Cells Rare /HPF (NEGATIVE) 01/12/18 23:44 Amorphous Sediment Trace /HPF (NEGATIVE) 01/12/18 23:44 Urine Bacteria Negative /HPF (NEGATIVE) 01/12/18 23:44 Urine Mucus Rare /HPF (NEGATIVE) 01/12/18 23:44 Ur Culture Indicated? No/not indicated 01/12/18 23:44 Urine Opiates Screen Negative (NEG=<300) 01/12/18 23:44 Urine Methadone Screen Negative (NEG=<300) 01/12/18 23:44 Ur Barbiturates Screen Negative (NEG=<200) 01/12/18 23:44 Ur Phencyclidine Scrn Negative (NEG=<25) 01/12/18 23:44 Ur Amphetamines Screen Negative (NEG=<1000) 01/12/18 23:44 U Benzodiazepines Scrn Positive (NEG=<200) A 01/12/18 23:44 Urine Cocaine Screen Negative (NEG=<300) 01/12/18 23:44 U Marijuana (THC) Screen Negative (NEG=<50) 01/12/18 23:44 Monoscreen Negative (NEGATIVE) 01/12/18 16:55 S. pyogenes (TEM-PCR) Not detected (NOT DETECT) 01/12/18 17:59 XRAY XRAY Interpreted by: Radiologist XRAY Findings: REPORT DISCUSS WITH PATIENT. EKG Rate: 70 [place]: Normal Rhythm: NSR Block: None Hypertrophy: None ST: Normal Diagnosis Discharge Problem: Pneumonia, Chest pain, COPD with respiratory distress, acute, Left against medical advice
[2018-01-12 17:17] LABS: ABG BASE EXCESS 5.3 mmol/L (-2.0-2.0)
[2018-01-12 17:19] LABS: ABG ALLEN TEST POS; ABG HCO3 32.2 mmol/L (22-26)
[2018-01-12 17:20] LABS: B-TYPE NATRIURETIC PEPTIDE 26.9 pg/mL (0-79)
[2018-01-12 17:21] LABS: BLOOD UREA NITROGEN 16 mg/dL (7-18); CALCIUM 8.2 mg/dL (8.5-10.1); CARBON DIOXIDE 32.1 mmol/L (21-32); CHLORIDE 99 mmol/L (98-107); COR NA(FOR HYPERGLY) 135 mmol/L (136-145); CREATININE 1.29 mg/dL (0.55-1.02); SODIUM 135 mmol/L (136-145); TROPONIN I < 0.02 ng/mL (0-1.5); eGFR NON BLACK RACES 45 (>60)
[2018-01-12 17:25] LABS: ALANINE AMINOTRANSFERASE 59 Units/L (12-78); ALBUMIN 2.9 g/dL (3.4-5.0); ALKALINE PHOSPHATASE 167 Units/L (46-116); ASPARTATE AMINO TRANSFERASE 19 Units/L (15-37); CKMB % 2.5 % (<4); COR CA(FOR HYPOALB) 9.1 mg/dL (8.5-10.1); CREATINE KINASE 40 Units/L (26-192); CREATINE KINASE MB < 1.0 ng/mL (0-4.0); TOTAL PROTEIN 6.8 g/dL (6.4-8.2)
[2018-01-12] MEDS ORDERED: ROCEPHIN VIAL 1 GRAM IM ONE (18:19)
[2018-01-12] MEDS ORDERED: TESSALON PERLES PO ONE (18:20)
[2018-01-12] MEDS ORDERED: NS 1000 ML 1,000 ML ONE ×2 (18:58→22:31)
[2018-01-12] MEDS ORDERED: NS 1000 ML 1,000 ML IV ONE ×2 (19:05→22:28)
[2018-01-12] MEDS ORDERED: ROCEPHIN 1 GRAM IV PREMIX 1 G/50 ML IV.SOLN. IV ONE (19:05)
[2018-01-12] MEDS ORDERED: ROCEPHIN VIAL 1 GRAM ONE (19:06)
[2018-01-12] MEDS ORDERED: NS 100 ML IV + SPIKE MINIBAG* 100 ML IV ONE (19:06)
[2018-01-12] MEDS ORDERED: NS 100 ML IV 100 ML IV ONE (19:14)
--- NOTE | 2018-01-12 20:35 | CT ---
CTA chest Indication: Shortness of breath, denies chest pain Technique: Helical CT images of the chest were obtained with IV contrast. Reformatted images in the c oronal and sagittal planes and 3D MIP images were also generated for review. Comparison: 09/15/2017 Findings: Contrast bolus timing is adequate for detection of PTE. No pulmonary thromboembolus is iden tified. There is no pulmonary arterial dilatation or evidence of right heart strain. The heart is nor mal in size without significant pericardial effusion. The thoracic aorta and proximal great vessels a re normal in contour and caliber. The central airways are patent. There is no mediastinal or bulky hi lar lymphadenopathy. There is mild peribronchial thickening. There are patchy ground-glass opacities within the right midd le lobe. Streaky opacities within the dependent left lower lobe are favored to represent atelectasis. The remainder of the lungs are clear. No significant pleural effusion or pneumothorax is identified. Limited images of the upper abdomen show no acute abnormality. No aggressive osseous lesions are iden tified. Impression: No PTE identified. Mild peribronchial thickening, compatible with bronchitis and patchy ground-glass opacities within th e right middle lobe, suspicious for developing bronchopneumonitis. Reported By:
[2018-01-12] MEDS ORDERED: TORADOL 30 MG VIAL IVP STA (23:26)
[2018-01-12] MEDS ORDERED: TORADOL 30 MG VIAL ONE (23:50)
[2018-01-12 23:52] LABS: BILIRUBIN,URINE NEGATIVE (NEGATIVE); BLOOD/HEMOGLOBIN,URINE NEGATIVE (NEGATIVE); GLUCOSE, URINE NEGATIVE (NEGATIVE); KETONES,URINE NEGATIVE (NEGATIVE); LEUKOCYTE ESTERASE ,URINE NEGATIVE (NEGATIVE); NITRITES,URINE NEGATIVE (NEGATIVE); PROTEIN,URINE 1+ (NEGATIVE); UROBILINOGEN,URINE NORMAL (NORMAL)
[2018-01-12 23:53] LABS: APPEARANCE,URINE CLEAR (CLEAR); COLOR,URINE YELLOW (YELLOW)
[2018-01-12 23:58] LABS: AMORPHOUS SEDIMENT,UR TRACE /HPF (NEGATIVE); BACTERIA,URINE NEGATIVE /HPF (NEGATIVE); MUCUS,URINE RARE /HPF (NEGATIVE); RBC,URINE NONE SEEN /HPF (NONE SEEN); SQUAMOUS EPITHELIAL CELL,UR RARE /HPF (NEGATIVE)
[2018-01-13] MEDS ORDERED: NS 500 ML IV 500 ML IV ONE (00:24)
[2018-01-13] MEDS ORDERED: NS 1000 ML 1,000 ML ONE (00:25)
[2018-01-13] MEDS ORDERED: DOPAMINE IV PREMIX 400 MG/250 ML 400 MG/250 ML BAG IV PRN (00:47)
[2018-01-13 02:22] LABS: CKMB % 2.3 % (<4); CREATINE KINASE 44 Units/L (26-192); CREATINE KINASE MB < 1.0 ng/mL (0-4.0); TROPONIN I < 0.02 ng/mL (0-1.5)
[2018-01-13] MEDS ORDERED: TORADOL 30 MG VIAL IVP PRN (03:00)
[2018-01-13] MEDS ORDERED: STERILE WATER IRRIGATION IR ONE (03:18)
[2018-01-13] MEDS ORDERED: NICOTINE PATCH TD ONE (03:18)
[2018-01-13] MEDS: NICOTINE PATCH TD SCH ×3 (03:37→23:09)
[2018-01-13] MEDS: NS 1000 ML 1,000 ML IV SCH (05:15)
[2018-01-13 06:46] LABS: BASOPHILS % (AUTO) 0.2 % (0.2-1.0); EOSINOPHILS % (AUTO) 0.2 % (0.9-2.9); HEMATOCRIT 36.2 % (36.0-47.0); HEMOGLOBIN 11.9 g/dL (12.0-16.0); MEAN CORPUSCULAR HEMOGLOBIN 27.6 pg (27.0-34.0); MEAN CORPUSCULAR HGB CONC 32.8 g/dL (33.0-35.0); MEAN CORPUSCULAR VOLUME 84.3 fL (80.0-100.0); MEAN PLATELET VOLUME 7.5 fL (7.4-11.0); MONOCYTES # (AUTO) 0.4 x10^3/uL (0.3-0.8); MONOCYTES % (AUTO) 5.5 % (0.0-13.0); NEUTROPHILS # (AUTO) 4.2 x10^3/uL (2.2-4.8); NEUTROPHILS % (AUTO) 63.1 % (42.0-75.0); PLATELET COUNT 260 X10^3/uL (150.0-450.0); RED BLOOD COUNT 4.29 X10^6/uL (3.5-5.4); WHITE BLOOD COUNT 6.6 X10^3/uL (3.6-10.0)
[2018-01-13 07:16] LABS: CREATINE KINASE 42 Units/L (26-192); CREATINE KINASE MB < 1.0 ng/mL (0-4.0); TROPONIN I < 0.02 ng/mL (0-1.5)
[2018-01-13 07:19] LABS: CKMB % 2.4 % (<4)
[2018-01-13 07:20] LABS: ALANINE AMINOTRANSFERASE 50 Units/L (12-78); ALBUMIN 2.7 g/dL (3.4-5.0); ALKALINE PHOSPHATASE 151 Units/L (46-116); ASPARTATE AMINO TRANSFERASE 14 Units/L (15-37); BLOOD UREA NITROGEN 16 mg/dL (7-18); CALCIUM 7.9 mg/dL (8.5-10.1); CARBON DIOXIDE 31.1 mmol/L (21-32); CHLORIDE 104 mmol/L (98-107); COR CA(FOR HYPOALB) 8.9 mg/dL (8.5-10.1); COR NA(FOR HYPERGLY) 141 mmol/L (136-145); CREATININE 1.07 mg/dL (0.55-1.02); SODIUM 139 mmol/L (136-145); TOTAL PROTEIN 6.4 g/dL (6.4-8.2); eGFR NON BLACK RACES 55 (>60)
[2018-01-13 08:30] LABS: CHOL/HDL RATIO 6.1 (0.0-5.0)
[2018-01-13] MEDS: PROTONIX INJ 40 MG VIAL IVP SCH (08:44)
[2018-01-13] MEDS: LOVENOX INJ 30 MG SYR SC SCH (08:45)
[2018-01-13] MEDS ORDERED: LOVENOX INJ 40 MG SYR SC SCH (09:00)
[2018-01-13] MEDS ORDERED: ZOFRAN TAB 4 MG PO PRN (09:17)
[2018-01-13] MEDS: PULMICORT NEB TX 0.5 MG NEB SCH ×3 (09:35→20:53)
[2018-01-13 09:41] LABS: ABG ALLEN TEST POS
[2018-01-13] MEDS: K-DUR TAB 20 MEQ PO SCH (09:42)
[2018-01-13] MEDS: PLAVIX PO SCH (09:42)
[2018-01-13] MEDS: LEVAQUIN PREMIX IV 750 MG 750 MG/150 ML BAG IV SCH (09:43)
[2018-01-13] MEDS: NS 500 ML IV 500 ML IV SCH (09:43)
[2018-01-13] MEDS ORDERED: TYLENOL 500 MG TAB EXTRA STRENGTH PO PRN ×2 (10:53→17:00)
[2018-01-13] MEDS: HumuLIN R SUBCUT PRN ×3 (11:08→21:20)
[2018-01-13] MEDS: ZOSYN VIAL 3.375 GRAMS 3.375 G in NS 100 ML IV + SPIKE MINIBAG* 100 ML IV SCH ×3 (11:39→21:21)
--- NOTE | 2018-01-13 11:53 | DR.H&P ---
H&P - History & Physical for Day of: H&P Date: 01/13/18 - Chief Complaint Chief Complaint: SOB - History of Present Illness History of Present Illness: 63 WF ER ADMISSION AFTER PRESENTING WITH CO SOB, WORSE OVER LAST DAY. PT WAS PREVIOUSLY SEEN BY HER PCP WITH SORE THROAT AND URI SYMPTOMS. PT HAS PMH OF COPD. PT EVALUATED IN ER, HAD CTA CHEST REVEALING BRONCHONCHITIS, BRONCHOPNEUMONIA. PT HYPOTENSIVE AND STARTED ON DOPAMINE DRIP, PT CO NORMALLY OF HTN. PT ADMITTED TO ICU FOR TREATMENT OF ACUTE RESP ILLNESS AND HYPOTENSION. - Past Medical History Past Medical History: Anxiety, Arthritis, CHF, COPD, Depression, Diabetes, Hypertension, Hypothyroidism - Past Surgical History Surgical History: Hysterectomy, Ortho Surgery, Thyroidectomy - Family History Family Medical History: Cancer, Hypertension - Social History Does patient currently use any type of tobacco product: Yes Have you used tobacco products in the last 12 months: Yes Type of Tobacco Use: Cigarettes How many years tobacco product used: 40 Does any household member use tobacco: Yes Alcohol Use: None Drug Use: None - Medications Home Medications: metoprolol Allergy (Verified 01/12/18 14:08) CONTINUE taking the following medications albuterol sulfate [ProAir HFA] 2 puff INHALATION Q4-6H PRN 01/12/18 [History] cholecalciferol (vitamin D3) [Vitamin D3] 5,000 unit PO QWEEK 01/12/18 [History] glycopyrrolate-formoterol [Bevespi Aerosphere] 2 puff INHALATION BID 01/12/18 [ History] metformin 750 mg PO BID 01/12/18 [History] ondansetron 8 mg PO BID 01/12/18 [History] potassium chloride 20 meq PO QDAY 01/12/18 [History] clopidogrel 75 mg PO DAILY 01/13/18 [History] diazepam 2 mg PO HS 01/13/18 [History] doxepin 10 mg PO DAILY 01/13/18 [History] furosemide 40 mg PO DAILY PRN 01/13/18 [History] rosuvastatin 20 mg PO HS 01/13/18 [History] - Review of Systems Constitutional: Chills, Weakness Eyes: No Symptoms Reported ENT: Nose Discharge, Throat Pain Respiratory: Cough, Shortness of Breath, Wheezing Cardiovascular: No Symptoms Reported Gastrointestinal: Nausea Genitourinary: No Symptoms Reported Musculoskeletal: No Symptoms Reported Skin: No Symptoms Reported Neurological: No Symptoms Reported - Physical Exam Vital Signs: Temperature 97.3 F Pulse Rate [Apical] 67 Pulse Rate [Right Radial] 68 Pulse Rate 63 Respiratory Rate 22 Blood Pressure [Right Arm] 115/56 Blood Pressure 183/80 O2 Sat by Pulse Oximetry 98 Oriented: Normal Eyes: Normal Ear: Normal Nose: Normal Throat: Red, Dry Respiratory: Wheezes Throughout, RLL Diminished, LLL Diminished Cardiovascular: Normal : Normal Auscultation: Bowel Sounds: Normal Palpation: Normal Tenderness: Normal Skin: Decreased Turgur Musculoskeletal: Normal Psychiatric: Anxiety Affect: Anxious Speech Pattern: Clear, Appropriate - Assessment/Plan (1) Bronchopneumonia Status: Acute (2) Hypotension Status: Acute (3) COPD with respiratory distress, acute Status: Acute (4) Diabetes Status: Acute Plan: SSI, VERIFY HOME MEDS, BS AC HS - Allergies Allergies/Adverse Reactions: Allergies Allergy/AdvReac Type Severity Reaction Status Date / Time metoprolol Allergy Verified 01/12/18 14:08
[2018-01-13] MEDS: DUONEB 0.5 MG/3 MG NEB SCH ×3 (12:00→20:53)
[2018-01-13 14:02] LABS: CREATINE KINASE 35 Units/L (26-192); CREATINE KINASE MB < 1.0 ng/mL (0-4.0); TROPONIN I < 0.02 ng/mL (0-1.5)
[2018-01-13] MEDS: NORCO 7.5/325 MG TAB PO PRN ×2 (14:08→21:22)
[2018-01-13 14:37] LABS: CKMB % 2.9 % (<4)
[2018-01-13 14:56] VITALS: BMI 40.0
[2018-01-13] MEDS: CRESTOR TAB 10 MG PO SCH (21:22)
[2018-01-13] MEDS: RANEXA PO SCH (21:22)
[2018-01-13] MEDS: SNACK - Diabetic Appropriate PO SCH (21:23)
[2018-01-13] MEDS: NEURONTIN CAP 400 MG PO PRN (21:31)
[2018-01-13] MEDS: AMBIEN PO PRN (23:08)
[2018-01-14] MEDS: DUONEB 0.5 MG/3 MG NEB SCH ×6 (01:08→20:26)
[2018-01-14] MEDS: NS 1000 ML 1,000 ML IV SCH ×2 (02:07→04:42)
[2018-01-14 06:08] LABS: BASOPHILS % (AUTO) 0.2 % (0.2-1.0); EOSINOPHILS % (AUTO) 0.1 % (0.9-2.9); HEMATOCRIT 34.1 % (36.0-47.0); HEMOGLOBIN 11.2 g/dL (12.0-16.0); LYMPHOCYTES # (AUTO) 1.5 X10^3/uL (1.3-2.9); LYMPHOCYTES % (AUTO) 31.4 % (21.0-51.0); MEAN CORPUSCULAR HEMOGLOBIN 27.6 pg (27.0-34.0); MEAN CORPUSCULAR HGB CONC 32.9 g/dL (33.0-35.0); MEAN CORPUSCULAR VOLUME 83.9 fL (80.0-100.0); MEAN PLATELET VOLUME 7.5 fL (7.4-11.0); MONOCYTES # (AUTO) 0.3 x10^3/uL (0.3-0.8); MONOCYTES % (AUTO) 5.2 % (0.0-13.0); NEUTROPHILS % (AUTO) 63.1 % (42.0-75.0); PLATELET COUNT 240 X10^3/uL (150.0-450.0); RED BLOOD COUNT 4.06 X10^6/uL (3.5-5.4); WHITE BLOOD COUNT 4.8 X10^3/uL (3.6-10.0)
[2018-01-14] MEDS: HumuLIN R SUBCUT PRN (06:14)
[2018-01-14] MEDS: ZOSYN VIAL 3.375 GRAMS 3.375 G in NS 100 ML IV + SPIKE MINIBAG* 100 ML IV SCH ×3 (06:18→21:42)
[2018-01-14 06:24] LABS: ALANINE AMINOTRANSFERASE 41 Units/L (12-78); ALBUMIN 2.4 g/dL (3.4-5.0); ALKALINE PHOSPHATASE 132 Units/L (46-116); ASPARTATE AMINO TRANSFERASE 13 Units/L (15-37); BLOOD UREA NITROGEN 11 mg/dL (7-18); CALCIUM 7.8 mg/dL (8.5-10.1); CARBON DIOXIDE 32.3 mmol/L (21-32); CHLORIDE 106 mmol/L (98-107); COR CA(FOR HYPOALB) 9.1 mg/dL (8.5-10.1); COR NA(FOR HYPERGLY) 144 mmol/L (136-145); CREATININE 1.07 mg/dL (0.55-1.02); SODIUM 141 mmol/L (136-145); TOTAL PROTEIN 6.1 g/dL (6.4-8.2); eGFR NON BLACK RACES 55 (>60)
[2018-01-14] MEDS: PULMICORT NEB TX 0.5 MG NEB SCH ×2 (08:45→20:26)
[2018-01-14] MEDS: PLAVIX PO SCH (08:56)
[2018-01-14] MEDS: PROTONIX INJ 40 MG VIAL IVP SCH (08:56)
[2018-01-14] MEDS: K-DUR TAB 20 MEQ PO SCH (08:56)
[2018-01-14] MEDS: RANEXA PO SCH ×2 (08:57→21:43)
[2018-01-14] MEDS: SYNTHROID 75 mcg TAB PO SCH (08:57)
[2018-01-14] MEDS: PROzac PO SCH (08:57)
[2018-01-14] MEDS: LOVENOX INJ 30 MG SYR SC SCH (08:57)
[2018-01-14] MEDS ORDERED: PATIENT'S HOME MEDICATION (Omeprazole [Prilosec 40 Mg] 40 MG) PO SCH (09:00)
[2018-01-14] MEDS: NICOTINE PATCH TD SCH (09:01)
[2018-01-14] MEDS: MILK OF MAGNESIA PO SCH (09:02)
[2018-01-14] MEDS: LEVAQUIN PREMIX IV 750 MG 750 MG/150 ML BAG IV SCH (09:03)
[2018-01-14] MEDS: NS 500 ML IV 500 ML IV SCH (09:04)
[2018-01-14] MEDS: NORCO 7.5/325 MG TAB PO PRN ×2 (09:08→21:49)
[2018-01-14] MEDS ORDERED: ATARAX TAB 25 MG PO PRN (13:33)
[2018-01-14] MEDS ORDERED: MYLICON TAB 80 MG CHEW PO PRN (13:37)
--- NOTE | 2018-01-14 13:37 | PCM.PROG ---
Progress Note - Progress Note for Day of Date of Exam: 01/14/18 - Subjective Subjective: 63 WF ER ADMIT ON 01/13 WITH PNEUMONIA AND HYPOTENSION. CURRENTLY D/ CD FROM DOPAMINE DRIP. BP IMPROVED THIS AM 160/80, WILL RESUME LISINOPRIL AT 10MG PO DAILY. PT REPORTS ABD BLOATED, KUB ORDERED WITH RESULTS PENDING, WILL ADD SIMETHICONE. PT CONTINUE WITH SUPPLEMENTAL O2 AND IV ATBX. PT CO ANXIETY, CANNOT REST THIS AM - Past Medical Family Social History Past Med/Fam/Surg Hx: No changes since H&P Allergies: Allergies metoprolol Allergy (Verified 01/12/18 14:08) - Review of Systems ROS: No change since H&P - Vital Signs and I&O's Vital Signs: Temperature 97.8 F Pulse Rate [Apical] 72 Pulse Rate [Right Radial] 68 Pulse Rate 69 Respiratory Rate 20 Blood Pressure [Right Arm] 160/80 Blood Pressure 183/80 O2 Sat by Pulse Oximetry 98 Intake and Output: Intake & Output 01/12/18 01/13/18 01/14/18 01/15/18 11:59 11:59 11:59 11:59 Intake Total 951 / 951 2555 / 2555 Output Total 1100 / 1100 2650 / 2650 Balance -149 / -149 -95 / -95 - Physical Exam Oriented: Normal Eyes: Normal Ear: Normal Nose: Normal Throat: Red, Dry Respiratory: Diminished, Wheezes Cardiovascular: Normal : Normal Auscultation: Bowel Sounds: Normal Tenderness: Normal Skin: Decreased Turgur Musculoskeletal: Normal Psychiatric: Anxiety Affect: Anxious Speech Pattern: Clear, Appropriate - Laboratory and Diagnostics Result Diagrams: 01/14/18 05:39 01/14/18 05:39 Labs: 01/13/18 10:20 Sputum - Expectorated Sputum Sputum Culture - Final 01/13/18 10:20 Sputum - Expectorated Sputum - Final Laboratory WBC 4.8 X10^3/uL (3.6-10.0) 01/14/18 05:39 RBC 4.06 X10^6/uL (3.5-5.4) 01/14/18 05:39 Hgb 11.2 g/dL (12.0-16.0) L 01/14/18 05:39 Hct 34.1 % (36.0-47.0) L 01/14/18 05:39 MCV 83.9 fL (80.0-100.0) 01/14/18 05:39 MCH 27.6 pg (27.0-34.0) 01/14/18 05:39 MCHC 32.9 g/dL (33.0-35.0) L 01/14/18 05:39 RDW 16.0 % (11.6-16.5) 01/14/18 05:39 Plt Count 240 X10^3/uL (150.0-450.0) 01/14/18 05:39 MPV 7.5 fL (7.4-11.0) 01/14/18 05:39 Neut % (Auto) 63.1 % (42.0-75.0) 01/14/18 05:39 Lymph % (Auto) 31.4 % (21.0-51.0) 01/14/18 05:39 [place] % (Auto) 5.2 % (0.0-13.0) 01/14/18 05:39 Eos % (Auto) 0.1 % (0.9-2.9) L 01/14/18 05:39 Baso % (Auto) 0.2 % (0.2-1.0) 01/14/18 05:39 Neut # (Auto) 3.0 x10^3/uL (2.2-4.8) 01/14/18 05:39 Lymph # (Auto) 1.5 X10^3/uL (1.3-2.9) 01/14/18 05:39 [place] # (Auto) 0.3 x10^3/uL (0.3-0.8) 01/14/18 05:39 Eos # (Auto) 0.0 x10^3/uL (0.0-0.2) 01/14/18 05:39 Baso # (Auto) 0.0 X10^3/uL (0.0-0.1) 01/14/18 05:39 Absolute Nucleated RBC 0.0 /100WBC 01/14/18 05:39 D-Dimer 220 ng/mL (0-400) 01/12/18 16:55 Sample Site Rr 01/13/18 09:35 ABG pH 7.330 (7.35-7.45) L 01/13/18 09:35 ABG pCO2 55.0 mmHg (35.0-45.0) H* 01/13/18 09:35 ABG pO2 67.0 mmHg (80.0-100.0) L 01/13/18 09:35 ABG HCO3 29.0 mmol/L (22-26) H 01/13/18 09:35 ABG O2 Saturation 92.0 % (90-100) 01/13/18 09:35 ABG Base Excess 2.0 mmol/L (-2.0-2.0) 01/13/18 09:35 Enoc Test Pos 01/13/18 09:35 A-a Gradient 92.0 mmHg 01/13/18 09:35 FiO2 32.000 01/13/18 09:35 Blood Gas Comments Pt etelvina well. cdn 01/13/18 09:35 Sodium 141 mmol/L (136-145) 01/14/18 05:39 Corrected Sodium 144 mmol/L (136-145) 01/14/18 05:39 Potassium 4.7 mmol/L (3.5-5.1) 01/14/18 05:39 Chloride 106 mmol/L (98-107) 01/14/18 05:39 Carbon Dioxide 32.3 mmol/L (21-32) H 01/14/18 05:39 BUN 11 mg/dL (7-18) 01/14/18 05:39 Creatinine 1.07 mg/dL (0.55-1.02) H 01/14/18 05:39 Est GFR (MDRD) Af Amer > 60 (>60) 01/14/18 05:39 Est GFR (MDRD) Non-Af 55 (>60) L 01/14/18 05:39 Glucose 228 mg/dL (65-99) H 01/14/18 05:39 POC Glucose (mg/dL) 133 mg/dL (65-99) H 01/14/18 10:39 Lactic Acid 0.9 mmol/L (0.4-2.0) 01/12/18 23:48 Calcium 7.8 mg/dL (8.5-10.1) L 01/14/18 05:39 Corrected Calcium 9.1 mg/dL (8.5-10.1) 01/14/18 05:39 Total Bilirubin 0.30 mg/dL (0.2-1.0) 01/14/18 05:39 AST 13 Units/L (15-37) L 01/14/18 05:39 ALT 41 Units/L (12-78) 01/14/18 05:39 Alkaline Phosphatase 132 Units/L (46-116) H 01/14/18 05:39 Creatine Kinase 35 Units/L (26-192) 01/13/18 13:28 CK-MB (CK-2) < 1.0 ng/mL (0-4.0) 01/13/18 13:28 CK/CKMB % Calc 2.9 % (<4) 01/13/18 13:28 Troponin I < 0.02 ng/mL (0-1.5) 01/13/18 13:28 B-Natriuretic Peptide 26.9 pg/mL (0-79) 01/12/18 16:55 Total Protein 6.1 g/dL (6.4-8.2) L 01/14/18 05:39 Albumin 2.4 g/dL (3.4-5.0) L 01/14/18 05:39 Globulin 3.7 g/dL (2.5-4.5) 01/14/18 05:39 Albumin/Globulin Ratio 0.6 Ratio (1.1-2.1) L 01/14/18 05:39 Triglycerides 183 mg/dL (0-150) H 01/13/18 06:00 Cholesterol 178 mg/dL (0-200) 01/13/18 06:00 LDL Cholesterol, Calc 112 mg/dL (0-100) H 01/13/18 06:00 HDL Cholesterol 29 mg/dL (40-60) L 01/13/18 06:00 Cholesterol/HDL Ratio 6.1 (0.0-5.0) H 01/13/18 06:00 Specimen Type Catherized urine 01/12/18 23:44 Urine Color Yellow (YELLOW) 01/12/18 23:44 Urine Appearance Clear (CLEAR) 01/12/18 23:44 Urine pH 6.0 (5.0 - 8.0) 01/12/18 23:44 Ur Specific [place] 1.010 (1.000-1.030) 01/12/18 23:44 Urine Protein 1+ (NEGATIVE) 01/12/18 23:44 Urine Glucose (UA) Negative (NEGATIVE) 01/12/18 23:44 Urine Ketones Negative (NEGATIVE) 01/12/18 23:44 Urine Occult Blood Negative (NEGATIVE) 01/12/18 23:44 Urine Nitrite Negative (NEGATIVE) 01/12/18 23:44 Urine Bilirubin Negative (NEGATIVE) 01/12/18 23:44 Urine Urobilinogen Normal (NORMAL) 01/12/18 23:44 Ur Leukocyte Esterase Negative (NEGATIVE) 01/12/18 23:44 Urine RBC None seen /HPF (NONE SEEN) 01/12/18 23:44 Urine WBC None seen /HPF (NONE SEEN) 01/12/18 23:44 Ur Squamous Epith Cells Rare /HPF (NEGATIVE) 01/12/18 23:44 Amorphous Sediment Trace /HPF (NEGATIVE) 01/12/18 23:44 Urine Bacteria Negative /HPF (NEGATIVE) 01/12/18 23:44 Urine Mucus Rare /HPF (NEGATIVE) 01/12/18 23:44 Ur Culture Indicated? No/not indicated 01/12/18 23:44 Urine Opiates Screen Negative (NEG=<300) 01/12/18 23:44 Urine Methadone Screen Negative (NEG=<300) 08 23:44 Ur Barbiturates Screen Negative (NEG=<200) 01/12/18 23:44 Ur Phencyclidine Scrn Negative (NEG=<25) 08 23:44 Ur Amphetamines Screen Negative (NEG=<1000) 01/12/18 23:44 U Benzodiazepines Scrn Positive (NEG=<200) A 01/12/18 23:44 Urine Cocaine Screen Negative (NEG=<300) 01/12/18 23:44 U Marijuana (THC) Screen Negative (NEG=<50) 01/12/18 23:44 Monoscreen Negative (NEGATIVE) 01/12/18 16:55 S. pyogenes (TEM-PCR) Not detected (NOT DETECT) 01/12/18 17:59 - Plan (1) Bronchopneumonia Status: Acute Plan: IV ATBX, RESP THERAPY. BLOOD AND SPUTUM ON ADMISSION. AM CXR, KUB ORDERED THIS AM DUE TO ABDOMINAL DISTENTION. PT GIVEN COLACE. HYDROXYZINE 25MG PRN ANXIETY. CONTINUE SUPPLEMENTAL O2, BP MONITORING, AM LABS (2) Hypotension Status: Resolved (3) COPD with respiratory distress, acute Status: Acute (4) Diabetes Status: Acute Plan: SSI, VERIFY HOME MEDS, BS AC HS
[2018-01-14] MEDS ORDERED: LEVOTHYROXINE PO SCH (13:45)
[2018-01-14] MEDS ORDERED: PATIENT'S HOME MEDICATION (Lisinopril 10 MG) PO SCH (13:45)
[2018-01-14] MEDS: ZESTRIL TAB 10 MG PO SCH (15:04)
--- NOTE | 2018-01-14 16:08 | RAD ---
Examination: KUB History: Abdominal pain Findings: Unremarkable intestinal gas pattern not suggesting obstruction or localized ileus. No mass formation or ascites identified. Surgical clips right upper quadrant and surgical hardware in the lum bosacral spine. Impression: No acute abdominal pathology demonstrated. Reported By:
[2018-01-14] MEDS: SNACK - Diabetic Appropriate PO SCH (20:00)
[2018-01-14] MEDS ORDERED: MIRAPEX TAB 1 MG PO SCH (21:00)
[2018-01-14] MEDS ORDERED: COLACE CAP 100 MG PO SCH (21:00)
[2018-01-14] MEDS: CRESTOR TAB 10 MG PO SCH (21:43)
[2018-01-14] MEDS: AMBIEN PO PRN (21:45)
[2018-01-14] MEDS: NEURONTIN CAP 400 MG PO PRN (21:45)
[2018-01-15] MEDS: DUONEB 0.5 MG/3 MG NEB SCH ×4 (00:15→12:09)
[2018-01-15] MEDS: ZOSYN VIAL 3.375 GRAMS 3.375 G in NS 100 ML IV + SPIKE MINIBAG* 100 ML IV SCH ×2 (05:09→13:04)
[2018-01-15] MEDS: NS 1000 ML 1,000 ML IV SCH (05:09)
[2018-01-15 05:19] LABS: BASOPHILS % (AUTO) 0.3 % (0.2-1.0); EOSINOPHILS % (AUTO) 0.1 % (0.9-2.9); HEMATOCRIT 34.6 % (36.0-47.0); HEMOGLOBIN 11.5 g/dL (12.0-16.0); LYMPHOCYTES # (AUTO) 1.7 X10^3/uL (1.3-2.9); LYMPHOCYTES % (AUTO) 30.7 % (21.0-51.0); MEAN CORPUSCULAR HEMOGLOBIN 27.5 pg (27.0-34.0); MEAN CORPUSCULAR HGB CONC 33.1 g/dL (33.0-35.0); MEAN CORPUSCULAR VOLUME 83.3 fL (80.0-100.0); MEAN PLATELET VOLUME 7.3 fL (7.4-11.0); MONOCYTES # (AUTO) 0.3 x10^3/uL (0.3-0.8); MONOCYTES % (AUTO) 5.2 % (0.0-13.0); NEUTROPHILS # (AUTO) 3.5 x10^3/uL (2.2-4.8); NEUTROPHILS % (AUTO) 63.7 % (42.0-75.0); PLATELET COUNT 275 X10^3/uL (150.0-450.0); RED BLOOD COUNT 4.16 X10^6/uL (3.5-5.4); RED CELL DISTRIBUTION WIDTH 15.8 % (11.6-16.5); WHITE BLOOD COUNT 5.5 X10^3/uL (3.6-10.0)
[2018-01-15 05:27] LABS: ALANINE AMINOTRANSFERASE 41 Units/L (12-78); ALBUMIN 2.6 g/dL (3.4-5.0); ALKALINE PHOSPHATASE 144 Units/L (46-116); ASPARTATE AMINO TRANSFERASE 14 Units/L (15-37); BLOOD UREA NITROGEN 10 mg/dL (7-18); CALCIUM 8.2 mg/dL (8.5-10.1); CARBON DIOXIDE 34.4 mmol/L (21-32); CHLORIDE 104 mmol/L (98-107); COR CA(FOR HYPOALB) 9.3 mg/dL (8.5-10.1); COR NA(FOR HYPERGLY) 140 mmol/L (136-145); CREATININE 1.03 mg/dL (0.55-1.02); SODIUM 139 mmol/L (136-145); TOTAL PROTEIN 6.3 g/dL (6.4-8.2); eGFR NON BLACK RACES 58 (>60)
[2018-01-15] MEDS: PROzac PO SCH (08:27)
[2018-01-15] MEDS: ZESTRIL TAB 10 MG PO SCH (08:27)
[2018-01-15] MEDS: SYNTHROID 75 mcg TAB PO SCH (08:27)
[2018-01-15] MEDS: PROTONIX INJ 40 MG VIAL IVP SCH (08:27)
[2018-01-15] MEDS: RANEXA PO SCH (08:27)
[2018-01-15] MEDS: PLAVIX PO SCH (08:27)
[2018-01-15] MEDS: LEVAQUIN PREMIX IV 750 MG 750 MG/150 ML BAG IV SCH (08:28)
[2018-01-15] MEDS: LOVENOX INJ 30 MG SYR SC SCH (08:28)
[2018-01-15] MEDS: NICOTINE PATCH TD SCH (08:28)
[2018-01-15] MEDS: MILK OF MAGNESIA PO SCH (08:35)
[2018-01-15] MEDS: PULMICORT NEB TX 0.5 MG NEB SCH (08:54)
[2018-01-15] MEDS: NS 500 ML IV 500 ML IV SCH (11:09)
--- NOTE | 2018-01-15 14:41 | RAD ---
Examination: Chest, PA and lateral views History: SOB Comparison 01/12/2018 Findings: Continued normal heart size with clear lungs and pleural spaces. Impression: No change; no acute findings. Reported By:
[2018-01-15 15:12] VITALS: BP 140/71
--- NOTE | 2018-02-03 10:13 | PCM.DCPLAN ---
Discharge Summary - Admission Date Date of Admission: 01/13/18 - Discharge Date Discharge Date: 01/15/18 - Admission Diagnoses (1) Hypotension Status: Acute (2) Bronchopneumonia Status: Acute (3) COPD with respiratory distress, acute Status: Acute (4) Diabetes Status: Acute - Discharge Diagnoses Discharge Diagnosis: SAME ADMISSION DX - Discharge Medications Discharge Medications: Home Medication List albuterol sulfate [ProAir HFA] 2 puff INHALATION Q4-6H PRN 01/12/18 [History] cholecalciferol (vitamin D3) [Vitamin D3] 5,000 unit PO QWEEK 01/12/18 [History] glycopyrrolate-formoterol 2 puff INHALATION BID 01/12/18 [History] metformin 750 mg PO BID 01/12/18 [History] ondansetron 8 mg PO BID 01/12/18 [History] potassium chloride 20 meq PO QDAY 01/12/18 [History] diazepam 2 mg PO HS 01/13/18 [History] doxepin 10 mg PO DAILY 01/13/18 [History] furosemide 40 mg PO DAILY PRN 01/13/18 [History] rosuvastatin 20 mg PO HS 01/13/18 [History] levofloxacin [Levaquin] 500 mg PO QDAY #7 tab 01/15/18 [Rx] Prescriptions: levofloxacin [Levaquin] ISAÍAS HENDERSON - Hospital Course Vital Signs: Temperature 97.3 F Pulse Rate [Apical] 70 Pulse Rate [Right Radial] 68 Pulse Rate 74 Respiratory Rate 20 Blood Pressure [Right Arm] 140/71 Blood Pressure 183/80 O2 Sat by Pulse Oximetry 100 Latest Lab Results: Laboratory Last Values WBC 5.5 X10^3/uL (3.6-10.0) 01/15/18 05:02 RBC 4.16 X10^6/uL (3.5-5.4) 01/15/18 05:02 Hgb 11.5 g/dL (12.0-16.0) L 01/15/18 05:02 Hct 34.6 % (36.0-47.0) L 01/15/18 05:02 MCV 83.3 fL (80.0-100.0) 01/15/18 05:02 MCH 27.5 pg (27.0-34.0) 01/15/18 05:02 MCHC 33.1 g/dL (33.0-35.0) 01/15/18 05:02 RDW 15.8 % (11.6-16.5) 01/15/18 05:02 Plt Count 275 X10^3/uL (150.0-450.0) 01/15/18 05:02 MPV 7.3 fL (7.4-11.0) L 01/15/18 05:02 Neut % (Auto) 63.7 % (42.0-75.0) 01/15/18 05:02 Lymph % (Auto) 30.7 % (21.0-51.0) 01/15/18 05:02 [place] % (Auto) 5.2 % (0.0-13.0) 01/15/18 05:02 Eos % (Auto) 0.1 % (0.9-2.9) L 01/15/18 05:02 Baso % (Auto) 0.3 % (0.2-1.0) 01/15/18 05:02 Neut # (Auto) 3.5 x10^3/uL (2.2-4.8) 01/15/18 05:02 Lymph # (Auto) 1.7 X10^3/uL (1.3-2.9) 01/15/18 05:02 [place] # (Auto) 0.3 x10^3/uL (0.3-0.8) 01/15/18 05:02 Eos # (Auto) 0.0 x10^3/uL (0.0-0.2) 01/15/18 05:02 Baso # (Auto) 0.0 X10^3/uL (0.0-0.1) 01/15/18 05:02 Absolute Nucleated RBC 0.1 /100WBC 01/15/18 05:02 D-Dimer 220 ng/mL (0-400) 01/12/18 16:55 Sample Site Rr 01/13/18 09:35 ABG pH 7.330 (7.35-7.45) L 01/13/18 09:35 ABG pCO2 55.0 mmHg (35.0-45.0) H* 01/13/18 09:35 ABG pO2 67.0 mmHg (80.0-100.0) L 01/13/18 09:35 ABG HCO3 29.0 mmol/L (22-26) H 01/13/18 09:35 ABG O2 Saturation 92.0 % (90-100) 01/13/18 09:35 ABG Base Excess 2.0 mmol/L (-2.0-2.0) 01/13/18 09:35 Enoc Test Pos 01/13/18 09:35 A-a Gradient 92.0 mmHg 01/13/18 09:35 FiO2 32.000 01/13/18 09:35 Blood Gas Comments Pt etelvina well. cdn 01/13/18 09:35 Sodium 139 mmol/L (136-145) 01/15/18 05:02 Corrected Sodium 140 mmol/L (136-145) 01/15/18 05:02 Potassium 5.2 mmol/L (3.5-5.1) H 01/15/18 05:02 Chloride 104 mmol/L (98-107) 01/15/18 05:02 Carbon Dioxide 34.4 mmol/L (21-32) H 01/15/18 05:02 BUN 10 mg/dL (7-18) 01/15/18 05:02 Creatinine 1.03 mg/dL (0.55-1.02) H 01/15/18 05:02 Est GFR (MDRD) Af Amer > 60 (>60) 01/15/18 05:02 Est GFR (MDRD) Non-Af 58 (>60) L 01/15/18 05:02 Glucose 123 mg/dL (65-99) H 01/15/18 05:02 POC Glucose (mg/dL) 140 mg/dL (65-99) H 01/15/18 11:16 Lactic Acid 0.9 mmol/L (0.4-2.0) 01/12/18 23:48 Calcium 8.2 mg/dL (8.5-10.1) L 01/15/18 05:02 Corrected Calcium 9.3 mg/dL (8.5-10.1) 01/15/18 05:02 Total Bilirubin 0.40 mg/dL (0.2-1.0) 01/15/18 05:02 AST 14 Units/L (15-37) L 01/15/18 05:02 ALT 41 Units/L (12-78) 01/15/18 05:02 Alkaline Phosphatase 144 Units/L (46-116) H 01/15/18 05:02 Creatine Kinase 35 Units/L (26-192) 01/13/18 13:28 CK-MB (CK-2) < 1.0 ng/mL (0-4.0) 01/13/18 13:28 CK/CKMB % Calc 2.9 % (<4) 01/13/18 13:28 Troponin I < 0.02 ng/mL (0-1.5) 01/13/18 13:28 B-Natriuretic Peptide 26.9 pg/mL (0-79) 01/12/18 16:55 Total Protein 6.3 g/dL (6.4-8.2) L 01/15/18 05:02 Albumin 2.6 g/dL (3.4-5.0) L 01/15/18 05:02 Globulin 3.7 g/dL (2.5-4.5) 01/15/18 05:02 Albumin/Globulin Ratio 0.7 Ratio (1.1-2.1) L 01/15/18 05:02 Triglycerides 183 mg/dL (0-150) H 01/13/18 06:00 Cholesterol 178 mg/dL (0-200) 01/13/18 06:00 LDL Cholesterol, Calc 112 mg/dL (0-100) H 01/13/18 06:00 HDL Cholesterol 29 mg/dL (40-60) L 01/13/18 06:00 Cholesterol/HDL Ratio 6.1 (0.0-5.0) H 01/13/18 06:00 Specimen Type Catherized urine 01/12/18 23:44 Urine Color Yellow (YELLOW) 01/12/18 23:44 Urine Appearance Clear (CLEAR) 01/12/18 23:44 Urine pH 6.0 (5.0 - 8.0) 01/12/18 23:44 Ur Specific [place] 1.010 (1.000-1.030) 01/12/18 23:44 Urine Protein 1+ (NEGATIVE) 01/12/18 23:44 Urine Glucose (UA) Negative (NEGATIVE) 01/12/18 23:44 Urine Ketones Negative (NEGATIVE) 01/12/18 23:44 Urine Occult Blood Negative (NEGATIVE) 01/12/18 23:44 Urine Nitrite Negative (NEGATIVE) 01/12/18 23:44 Urine Bilirubin Negative (NEGATIVE) 01/12/18 23:44 Urine Urobilinogen Normal (NORMAL) 01/12/18 23:44 Ur Leukocyte Esterase Negative (NEGATIVE) 01/12/18 23:44 Urine RBC None seen /HPF (NONE SEEN) 01/12/18 23:44 Urine WBC None seen /HPF (NONE SEEN) 01/12/18 23:44 Ur Squamous Epith Cells Rare /HPF (NEGATIVE) 01/12/18 23:44 Amorphous Sediment Trace /HPF (NEGATIVE) 01/12/18 23:44 Urine Bacteria Negative /HPF (NEGATIVE) 01/12/18 23:44 Urine Mucus Rare /HPF (NEGATIVE) 01/12/18 23:44 Ur Culture Indicated? No/not indicated 01/12/18 23:44 Urine Opiates Screen Negative (NEG=<300) 01/12/18 23:44 Urine Methadone Screen Negative (NEG=<300) 01/12/18 23:44 Ur Barbiturates Screen Negative (NEG=<200) 01/12/18 23:44 Ur Phencyclidine Scrn Negative (NEG=<25) 01/12/18 23:44 Ur Amphetamines Screen Negative (NEG=<1000) 01/12/18 23:44 U Benzodiazepines Scrn Positive (NEG=<200) A 01/12/18 23:44 Urine Cocaine Screen Negative (NEG=<300) 01/12/18 23:44 U Marijuana (THC) Screen Negative (NEG=<50) 01/12/18 23:44 Monoscreen Negative (NEGATIVE) 01/12/18 16:55 S. pyogenes (TEM-PCR) Not detected (NOT DETECT) 01/12/18 17:59 Hospital Course: 63 WF ER ADMIT ON 01/13 WITH PNEUMONIA AND HYPOTENSION. DID REQUIRE DOPAMINE DRIP. BP IMPROVED AND WAS SUCCESSFULLY WEANED OFF. pNEUMONIA WAS TREATED WITH ANTIBIOTICS, NEBS AND SUPPLEMENTAL OXYGEN. PATIENT IMPROVED AND WAS DISCHARGED HOME WITH HOME HEALTH NURSES AND TO BE FOLLOWED IN OP SETTING. - Discharge Plan Disposition: HOME HEALTH SERVICE Condition: Stable Prescriptions: levofloxacin [Levaquin] 500 mg PO QDAY #7 tab - Follow ups/Referrals Follow ups/Referrals: [facility] [Other] (PT DISCHARGE HOME WITH HOME HEALTH CARE.) SALVATORE HALL [Nurse Practitioner] - 09/05/18 2:00 pm (SEE SALVATORE ON Monday01/17/18 AT 2PM) - Instructions Instructions: Hyperglycemia, [id number], Nonspecific Chest Pain, [id number] , Community-Acquired Pneumonia, Adult, [id number] Forms: Patient Portal
== END 2018-01-15 15:45 | disposition home or self-care (01) | DRG 194 ==
LOC: ER 13:53 → ICU 01-13 01:07
PROVIDERS: ADMIT Internal Medicine; ATTEND Internal Medicine
DX: E11.65 Type 2 diabetes mellitus with hyperglycemia; I10 Essential (primary) hypertension; J44.9 Chronic obstructive pulmonary disease, unspecified; E03.8 Other specified hypothyroidism; R06.02 Shortness of breath; J18.0 Bronchopneumonia, unspecified organism; R06.03 Acute respiratory distress; R07.89 Other chest pain; J44.0 Chronic obstructive pulmonary disease with (acute) lower respiratory infection
CPT/HCPCS: 36415; 36600; 51702; 71010; 71020; 71045; 71046; 71275; 74000; 74018; 80053; 80061; 80307; 81001; 82550; 82553; 82803; 83605; 83880; 84484; 85025; 85378; 86308; 87040; 87205; 87651; 93005; 93010; 94640; 96365; 96367; 99221; 99231; 99283; 99284; 99285; A4216; A4217; A4222; C9113; G0434; J0696; J1265; J1650; J1815; J1885; J1956; J2543; J7030; J7040; J7050; J7620; J7626

== ENCOUNTER 2018-02-15 11:51 | Observation (INO) ==
[2018-02-15] MEDS ORDERED: HumuLIN R SUBCUT PRN (12:07)
[2018-02-15] MEDS: FLAGYL IV PREMIX 500 MG BAG 500 MG/100 ML BAG IV SCH ×3 (13:26→20:32)
[2018-02-15] MEDS: NS 1000 ML 1,000 ML IV SCH (13:27)
[2018-02-15] MEDS: PROTONIX INJ 40 MG VIAL IVP SCH (13:27)
[2018-02-15] MEDS: NICOTINE PATCH TD SCH (13:27)
[2018-02-15] MEDS: PHENERGAN INJ 25 MG IV PRN ×2 (13:28→22:13)
[2018-02-15 14:27] LABS: BASOPHILS # (AUTO) 0.1 X10^3/uL (0.0-0.1); BASOPHILS % (AUTO) 1.1 % (0.2-1.0); EOSINOPHILS % (AUTO) 0.1 % (0.9-2.9); HEMATOCRIT 36.5 % (36.0-47.0); HEMOGLOBIN 12.4 g/dL (12.0-16.0); LYMPHOCYTES # (AUTO) 2.3 X10^3/uL (1.3-2.9); LYMPHOCYTES % (AUTO) 24.9 % (21.0-51.0); MEAN CORPUSCULAR HEMOGLOBIN 28.2 pg (27.0-34.0); MEAN CORPUSCULAR VOLUME 83.1 fL (80.0-100.0); MONOCYTES # (AUTO) 0.4 x10^3/uL (0.3-0.8); MONOCYTES % (AUTO) 4.8 % (0.0-13.0); NEUTROPHILS # (AUTO) 6.5 x10^3/uL (2.2-4.8); NEUTROPHILS % (AUTO) 69.1 % (42.0-75.0); PLATELET COUNT 372 X10^3/uL (150.0-450.0); RED BLOOD COUNT 4.39 X10^6/uL (3.5-5.4); RED CELL DISTRIBUTION WIDTH 16.3 % (11.6-16.5); WHITE BLOOD COUNT 9.4 X10^3/uL (3.6-10.0)
[2018-02-15 14:42] LABS: ALANINE AMINOTRANSFERASE 21 Units/L (12-78); ALBUMIN 3.3 g/dL (3.4-5.0); ALKALINE PHOSPHATASE 103 Units/L (46-116); AMYLASE 19 Units/L (25-115); ASPARTATE AMINO TRANSFERASE 11 Units/L (15-37); BLOOD UREA NITROGEN 9 mg/dL (7-18); CALCIUM 8.4 mg/dL (8.5-10.1); CARBON DIOXIDE 30.7 mmol/L (21-32); CHLORIDE 104 mmol/L (98-107); CREATININE 1.02 mg/dL (0.55-1.02); LIPASE 88 Units/L (73-393); SODIUM 140 mmol/L (136-145); TOTAL PROTEIN 7.5 g/dL (6.4-8.2); eGFR NON BLACK RACES 59 (>60)
[2018-02-15 14:55] VITALS: BMI 38.2
--- NOTE | 2018-02-15 16:29 | RAD ---
History: Shortness of breath Study: Portable upright AP chest Findings: The lungs are clear and the heart and mediastinum are unremarkable. There is no edema or ef fusion. Impression: No evidence for acute cardiopulmonary disease Reported By:
--- NOTE | 2018-02-15 17:54 | DR.H&P ---
Addendum entered and electronically signed by SALVATORE HALL 02/15/18 17:57: DELETE PREVIOUS ENTRY, (1) Colitis Status: Acute Plan: ADMIT, VERIFY HOME MEDS. RESUME RESP CARE. CBC CMP UA AMYLASE AND LIPASE. IV HYDRATION, CXR ON ADMISSION. NPO UNTIL CT ABD/PELVIS THEN CLEAR LIQUIDS. NAUSEA CONTROL, STOOL STUDIES. IV FAGYL Original Note: H&P - History & Physical for Day of: H&P Date: 02/15/18 - Chief Complaint Chief Complaint: NAUSEA, DIARRHEA, DEHYDRATION, WEAKNESS - History of Present Illness History of Present Illness: 63 WF DIRECT ADMIT FROM DR MCNEIL OFFICE WITH CO SEVERE DIARRHEA WITH MUCOUS X 2 WEEKS AND NAUSEA. PT WAS SEEN IN DR MCNEIL OFFICE ON MONDAY WITH NEGATIVE H PYLORI, STOOL CULTURE NEGATIVE AT THIS TIME. PT CO FEVER AND WEAKNESS. PT HAS HX OF HTN, COPD, DM, OA, HYPOTHYROID DISEASE. PT HAS TAKEN PHENERGAN IM AND PO PHENERGAN WITHOUT RELIEF OF NAUSEA. PT ADMITTED FOR TREATMENT OF COLITIS, HYDRATION, BLOOD SUGAR CONTROL - Past Medical History Past Medical History: Hypertension, Diabetes, Depression, Anxiety, Hypothyroidism, COPD, Arthritis, CHF - Past Surgical History Surgical History: Appendectomy, Cholecystectomy, Hysterectomy, Ortho Surgery, Thyroidectomy, Tonsillectomy - Family History Family Medical History: Cancer, Hypertension - Social History Does patient currently use any type of tobacco product: Yes Have you used tobacco products in the last 12 months: Yes Type of Tobacco Use: Cigarettes How many years tobacco product used: 40 Does any household member use tobacco: No Alcohol Use: None Drug Use: None - Medications Home Medications: metoprolol Allergy (Verified 01/12/18 14:08) - Review of Systems Constitutional: Fever, Weakness, Malaise Eyes: No Symptoms Reported ENT: No Symptoms Reported Respiratory: No Symptoms Reported Cardiovascular: No Symptoms Reported Gastrointestinal: Nausea, Abdominal Pain, Diarrhea Genitourinary: No Symptoms Reported Musculoskeletal: Back Pain, Leg Pain Skin: No Symptoms Reported Neurological: Weakness - Physical Exam Vital Signs: Temperature 98.5 F Pulse Rate [Right Brachial] 80 Respiratory Rate 20 Blood Pressure [Left Arm] 147/67 Blood Pressure [Right Arm] 148/67 Blood Pressure 111/53 O2 Sat by Pulse Oximetry 97 Oriented: Normal Eyes: Normal Ear: Normal Nose: Normal Throat: Normal Respiratory: LLL Diminished Cardiovascular: Normal. negative: Edema : Normal Auscultation: Bowel Sounds: Increased Tenderness: Diffuse Skin: Decreased Turgur Musculoskeletal: Right, Left, Knee, Back:Lumbar, Crepitance Psychiatric: Anxiety Mood Description: Anxious Affect: Anxious Speech Pattern: Clear, Appropriate - Assessment/Plan (1) Colitis Status: Acute Plan: ADMIT, VERIFY HOME MEDS. RESUME RESP CARE. CBC CMP UA AMYLASE AND LIPASE. IV HYDRATION, CXR ON ADMISSION. NPO UNTIL CT ABD/PELVIS THEN CLEAR LIQUIDS. NAUSEA CONTROL, STOOL STUDIES. IV CIPRO (2) Dehydration Status: Acute (3) COPD (chronic obstructive pulmonary disease) Status: Acute (4) Generalized weakness Status: Acute (5) Diabetes Status: Acute - Allergies Allergies/Adverse Reactions: Allergies Allergy/AdvReac Type Severity Reaction Status Date / Time metoprolol Allergy Verified 01/12/18 14:08
[2018-02-15] MEDS ORDERED: STERILE WATER IRRIGATION IR ONE ×2 (18:35→21:21)
--- NOTE | 2018-02-15 19:09 | CT ---
CT abdomen and pelvis with contrast Indication: Abdominal pain. Nausea, vomiting and diarrhea. Fever. Weight loss. Comparison: No recent prior abdominal CT available. CT angiogram chest from 01/20/2018 reviewed Technique: Helical images through the abdomen and pelvis with contrast. Coronal and sagittal reformat s provided. Findings: Limited images through the lower chest demonstrates no acute abnormality. Minimal esophagea l thickening noted. Review of bone windows demonstrates postsurgical change in the lumbar spine witho ut destructive osseous lesion. Abdomen: The liver, spleen, adrenal glands, pancreas, stomach and small bowel are normal. The colon i s normal. The appendix is not convincingly demonstrated. Vascular calcifications are noted in the aor ta and branch vessels. Right kidney shows small upper pole cyst and right lower pole cyst. Left kidne y shows a few upper pole cysts without hydroureteronephrosis on either side identified. Pelvis: The urinary bladder and rectum rectum are normal. The uterus is absent. No adnexal region les ions seen. The appendix is absent for surgical history Impression: 1. Minimal esophageal thickening. Correlate clinically for signs of esophagitis and follow-up with EG D as needed. Otherwise, there is no acute abdominal or pelvic abnormality to explain the patient's symptoms 2. Postsurgical change in the spine, vascular plaque and renal cysts Reported By:
[2018-02-15] MEDS: SNACK - Diabetic Appropriate PO SCH (19:30)
[2018-02-15] MEDS: DUONEB 0.5 MG/3 MG NEB SCH (20:57)
[2018-02-15 23:25] LABS: BILIRUBIN,URINE NEGATIVE (NEGATIVE); BLOOD/HEMOGLOBIN,URINE NEGATIVE (NEGATIVE); GLUCOSE, URINE NEGATIVE (NEGATIVE); KETONES,URINE NEGATIVE (NEGATIVE); LEUKOCYTE ESTERASE ,URINE NEGATIVE (NEGATIVE); NITRITES,URINE NEGATIVE (NEGATIVE); PROTEIN,URINE 1+ (NEGATIVE); UROBILINOGEN,URINE NORMAL (NORMAL)
[2018-02-15 23:32] LABS: APPEARANCE,URINE CLEAR (CLEAR); BACTERIA,URINE NEGATIVE /HPF (NEGATIVE); COLOR,URINE YELLOW (YELLOW); RBC,URINE NONE SEEN /HPF (NONE SEEN); SQUAMOUS EPITHELIAL CELL,UR FEW /HPF (NEGATIVE)
[2018-02-15] MEDS ORDERED: DESYREL PO ONE (23:40)
[2018-02-15] MEDS: DESYREL PO SCH (23:49)
[2018-02-16] MEDS: DUONEB 0.5 MG/3 MG NEB SCH ×8 (00:51→20:08)
[2018-02-16] MEDS: FLAGYL IV PREMIX 500 MG BAG 500 MG/100 ML BAG IV SCH ×4 (02:19→20:51)
[2018-02-16 05:21] LABS: BASOPHILS % (AUTO) 0.1 % (0.2-1.0); EOSINOPHILS % (AUTO) 0.1 % (0.9-2.9); HEMATOCRIT 34.6 % (36.0-47.0); HEMOGLOBIN 11.4 g/dL (12.0-16.0); LYMPHOCYTES # (AUTO) 2.1 X10^3/uL (1.3-2.9); MEAN CORPUSCULAR HEMOGLOBIN 27.4 pg (27.0-34.0); MEAN CORPUSCULAR HGB CONC 32.9 g/dL (33.0-35.0); MEAN CORPUSCULAR VOLUME 83.3 fL (80.0-100.0); MEAN PLATELET VOLUME 7.2 fL (7.4-11.0); MONOCYTES # (AUTO) 0.4 x10^3/uL (0.3-0.8); MONOCYTES % (AUTO) 5.6 % (0.0-13.0); NEUTROPHILS # (AUTO) 5.2 x10^3/uL (2.2-4.8); NEUTROPHILS % (AUTO) 67.2 % (42.0-75.0); PLATELET COUNT 339 X10^3/uL (150.0-450.0); RED BLOOD COUNT 4.15 X10^6/uL (3.5-5.4); RED CELL DISTRIBUTION WIDTH 16.5 % (11.6-16.5); WHITE BLOOD COUNT 7.7 X10^3/uL (3.6-10.0)
[2018-02-16 05:32] LABS: ALANINE AMINOTRANSFERASE 19 Units/L (12-78); ALBUMIN 3.1 g/dL (3.4-5.0); ALKALINE PHOSPHATASE 96 Units/L (46-116); ASPARTATE AMINO TRANSFERASE 12 Units/L (15-37); BLOOD UREA NITROGEN 7 mg/dL (7-18); CALCIUM 8.1 mg/dL (8.5-10.1); CARBON DIOXIDE 27.1 mmol/L (21-32); CHLORIDE 106 mmol/L (98-107); COR CA(FOR HYPOALB) 8.8 mg/dL (8.5-10.1); COR NA(FOR HYPERGLY) 140 mmol/L (136-145); CREATININE 0.86 mg/dL (0.55-1.02); SODIUM 140 mmol/L (136-145); TOTAL PROTEIN 7.2 g/dL (6.4-8.2); eGFR NON BLACK RACES > 60 (>60)
[2018-02-16] MEDS: PROTONIX INJ 40 MG VIAL IVP SCH ×2 (08:26→23:00)
[2018-02-16] MEDS: NICOTINE PATCH TD SCH (08:26)
[2018-02-16] MEDS: PHENERGAN INJ 25 MG IV PRN ×2 (08:27→14:00)
[2018-02-16] MEDS ORDERED: LASIX PO PRN (08:45)
[2018-02-16] MEDS ORDERED: SYNTHROID 75 mcg TAB PO SCH (09:00)
[2018-02-16] MEDS ORDERED: PROTONIX INJ 40 MG VIAL IVP SCH (09:00)
[2018-02-16] MEDS ORDERED: SYNTHROID 100 mcg TAB PO SCH (09:00)
[2018-02-16] MEDS: PLAVIX PO SCH (10:46)
[2018-02-16] MEDS: RANEXA PO SCH ×2 (10:46→20:49)
[2018-02-16] MEDS: PROzac PO SCH (10:46)
[2018-02-16] MEDS: LIPITOR TAB 10 MG PO SCH (10:46)
[2018-02-16] MEDS: TYLENOL 325 MG TAB PO PRN (10:46)
[2018-02-16] MEDS: CARAFATE ORAL SUSP PO SCH ×3 (10:47→20:49)
[2018-02-16] MEDS: K-DUR TAB 20 MEQ PO SCH (10:48)
[2018-02-16] MEDS: NS 1000 ML 1,000 ML IV SCH (11:45)
[2018-02-16] MEDS: LOVENOX INJ 40 MG SYR SC SCH (11:45)
[2018-02-16] MEDS: NORCO 7.5/325 MG TAB PO PRN (11:49)
--- NOTE | 2018-02-16 12:45 | PCM.PROG ---
Progress Note - Progress Note for Day of Date of Exam: 02/16/18 - Subjective Subjective: 63 WF ADMITTED ON 02/15 WITH SEVERE NAUSEA, DIARRHEA. PT HAD CT ON ADMISSION WITH FINDINGS CONSISTENT WITH ESOPHAGITIS. PT STOOL CULTURE NEGATIVE AT THIS TIME. PT IS ON FLAGYL. ADDED CARAFATE QID, PROTONIX BID, WILL ADVANCE TOLERATED. PT CO ISIDRO THIS AM. AMYLASE AND LIPASE NORMAL, DISCUSSED LABS AND DIAGNOSTIC TEST WITH PT - Past Medical Family Social History Past Med/Fam/Surg Hx: No changes since H&P Allergies: Allergies metoprolol Allergy (Verified 01/12/18 14:08) - Review of Systems ROS: No change since H&P - Vital Signs and I&O's Vital Signs: Temperature 97.7 F Pulse Rate [Right Brachial] 89 Pulse Rate 76 Respiratory Rate 23 Blood Pressure [Left Arm] 158/71 Blood Pressure [Right Arm] 148/67 Blood Pressure 111/53 O2 Sat by Pulse Oximetry 96 Intake and Output: Intake & Output 02/14/18 02/15/18 02/16/18 02/17/18 11:59 11:59 11:59 11:59 Intake Total 1870 / 1870 Output Total 350 / 350 Balance 1520 / 1520 - Physical Exam Oriented: Normal Eyes: Normal Ear: Normal Nose: Normal Throat: Normal Cardiovascular: Normal. negative: Edema : Normal Auscultation: Bowel Sounds: Increased Tenderness: Diffuse, Epigastric, Mild. negative: Rebound, Guarding Skin: Decreased Turgur Musculoskeletal: Right, Left, Knee, Back:Lumbar, Crepitance Psychiatric: Anxiety Mood Description: Anxious Affect: Anxious Speech Pattern: Clear - Laboratory and Diagnostics Result Diagrams: 02/16/18 04:31 02/16/18 04:31 Labs: Laboratory WBC 7.7 X10^3/uL (3.6-10.0) 02/16/18 04:31 RBC 4.15 X10^6/uL (3.5-5.4) 02/16/18 04:31 Hgb 11.4 g/dL (12.0-16.0) L 02/16/18 04:31 Hct 34.6 % (36.0-47.0) L 02/16/18 04:31 MCV 83.3 fL (80.0-100.0) 02/16/18 04:31 MCH 27.4 pg (27.0-34.0) 02/16/18 04:31 MCHC 32.9 g/dL (33.0-35.0) L 02/16/18 04:31 RDW 16.5 % (11.6-16.5) 02/16/18 04:31 Plt Count 339 X10^3/uL (150.0-450.0) 02/16/18 04:31 MPV 7.2 fL (7.4-11.0) L 02/16/18 04:31 Neut % (Auto) 67.2 % (42.0-75.0) 02/16/18 04:31 Lymph % (Auto) 27.0 % (21.0-51.0) 02/16/18 04:31 [place] % (Auto) 5.6 % (0.0-13.0) 02/16/18 04:31 Eos % (Auto) 0.1 % (0.9-2.9) L 02/16/18 04:31 Baso % (Auto) 0.1 % (0.2-1.0) L 02/16/18 04:31 Neut # (Auto) 5.2 x10^3/uL (2.2-4.8) H 02/16/18 04:31 Lymph # (Auto) 2.1 X10^3/uL (1.3-2.9) 02/16/18 04:31 [place] # (Auto) 0.4 x10^3/uL (0.3-0.8) 02/16/18 04:31 Eos # (Auto) 0.0 x10^3/uL (0.0-0.2) 02/16/18 04:31 Baso # (Auto) 0.0 X10^3/uL (0.0-0.1) 02/16/18 04:31 Absolute Nucleated RBC 0.0 /100WBC 02/16/18 04:31 Sodium 140 mmol/L (136-145) 02/16/18 04:31 Corrected Sodium 140 mmol/L (136-145) 02/16/18 04:31 Potassium 3.5 mmol/L (3.5-5.1) 02/16/18 04:31 Chloride 106 mmol/L (98-107) 02/16/18 04:31 Carbon Dioxide 27.1 mmol/L (21-32) 02/16/18 04:31 BUN 7 mg/dL (7-18) 02/16/18 04:31 Creatinine 0.86 mg/dL (0.55-1.02) 02/16/18 04:31 Est GFR (MDRD) Af Amer > 60 (>60) 02/16/18 04:31 Est GFR (MDRD) Non-Af > 60 (>60) 02/16/18 04:31 Glucose 114 mg/dL (65-99) H 02/16/18 04:31 Calcium 8.1 mg/dL (8.5-10.1) L 02/16/18 04:31 Corrected Calcium 8.8 mg/dL (8.5-10.1) 02/16/18 04:31 Total Bilirubin 0.50 mg/dL (0.2-1.0) 02/16/18 04:31 AST 12 Units/L (15-37) L 02/16/18 04:31 ALT 19 Units/L (12-78) 02/16/18 04:31 Alkaline Phosphatase 96 Units/L (46-116) 02/16/18 04:31 Total Protein 7.2 g/dL (6.4-8.2) 02/16/18 04:31 Albumin 3.1 g/dL (3.4-5.0) L 02/16/18 04:31 Globulin 4.1 g/dL (2.5-4.5) 02/16/18 04:31 Albumin/Globulin Ratio 0.8 Ratio (1.1-2.1) L 02/16/18 04:31 Amylase 19 Units/L (25-115) L 02/15/18 14:19 Lipase 88 Units/L (73-393) 02/15/18 14:19 Specimen Type Random urine 02/15/18 22:30 Urine Color Yellow (YELLOW) 02/15/18 22:30 Urine Appearance Clear (CLEAR) 02/15/18 22:30 Urine pH 7.0 (5.0 - 8.0) 02/15/18 22:30 Ur Specific [place] 1.005 (1.000-1.030) 02/15/18 22:30 Urine Protein 1+ (NEGATIVE) 02/15/18 22:30 Urine Glucose (UA) Negative (NEGATIVE) 02/15/18 22:30 Urine Ketones Negative (NEGATIVE) 02/15/18 22:30 Urine Occult Blood Negative (NEGATIVE) 02/15/18 22:30 Urine Nitrite Negative (NEGATIVE) 02/15/18 22:30 Urine Bilirubin Negative (NEGATIVE) 02/15/18 22:30 Urine Urobilinogen Normal (NORMAL) 02/15/18 22:30 Ur Leukocyte Esterase Negative (NEGATIVE) 02/15/18 22:30 Urine RBC None seen /HPF (NONE SEEN) 02/15/18 22:30 Urine WBC 0-2 /HPF (NONE SEEN) 02/15/18 22:30 Ur Squamous Epith Cells Few /HPF (NEGATIVE) 02/15/18 22:30 Urine Bacteria Negative /HPF (NEGATIVE) 02/15/18 22:30 Ur Culture Indicated? No/not indicated 02/15/18 22:30 - Plan (1) Esophagitis Status: Acute Plan: CARAFATE QID, PROTONIX BID. NAUSEA CONTROL, ADVANCE DIET TOLERATED (2) Colitis Status: Acute Plan: CBC CMP Q AM. IV HYDRATION, CXR ON ADMISSION. ADVANCE TO FULL LIQUID TOLERATED. NAUSEA CONTROL, STOOL STUDIES. IV FLAGYL (3) Dehydration Status: Acute (4) COPD (chronic obstructive pulmonary disease) Status: Acute (5) Generalized weakness Status: Acute (6) Diabetes Status: Acute
[2018-02-16] MEDS: NEURONTIN CAP 400 MG PO SCH ×2 (13:55→21:00)
[2018-02-16] MEDS: DESYREL PO SCH (20:50)
[2018-02-16] MEDS: SNACK - Diabetic Appropriate PO SCH (20:50)
[2018-02-16] MEDS ORDERED: TRAZODONE HCL 50 MG PO SCH (21:00)
[2018-02-16] MEDS ORDERED: MIRAPEX TAB 0.25 MG PO SCH (21:00)
[2018-02-17] MEDS: DUONEB 0.5 MG/3 MG NEB SCH ×3 (00:40→08:42)
[2018-02-17] MEDS: FLAGYL IV PREMIX 500 MG BAG 500 MG/100 ML BAG IV SCH ×2 (03:01→08:43)
[2018-02-17 05:36] LABS: BASOPHILS # (AUTO) 0.1 X10^3/uL (0.0-0.1); BASOPHILS % (AUTO) 1.2 % (0.2-1.0); EOSINOPHILS % (AUTO) 0.1 % (0.9-2.9); HEMATOCRIT 33.6 % (36.0-47.0); HEMOGLOBIN 11.1 g/dL (12.0-16.0); LYMPHOCYTES # (AUTO) 1.7 X10^3/uL (1.3-2.9); MEAN CORPUSCULAR HEMOGLOBIN 27.8 pg (27.0-34.0); MEAN CORPUSCULAR HGB CONC 32.9 g/dL (33.0-35.0); MEAN CORPUSCULAR VOLUME 84.4 fL (80.0-100.0); MEAN PLATELET VOLUME 7.4 fL (7.4-11.0); MONOCYTES # (AUTO) 0.3 x10^3/uL (0.3-0.8); NEUTROPHILS # (AUTO) 4.3 x10^3/uL (2.2-4.8); NEUTROPHILS % (AUTO) 67.7 % (42.0-75.0); PLATELET COUNT 314 X10^3/uL (150.0-450.0); RED BLOOD COUNT 3.99 X10^6/uL (3.5-5.4); RED CELL DISTRIBUTION WIDTH 16.6 % (11.6-16.5); WHITE BLOOD COUNT 6.4 X10^3/uL (3.6-10.0)
[2018-02-17] MEDS: NORCO 7.5/325 MG TAB PO PRN (05:39)
[2018-02-17] MEDS: NEURONTIN CAP 400 MG PO SCH (05:39)
[2018-02-17 05:48] LABS: ALANINE AMINOTRANSFERASE 17 Units/L (12-78); ALBUMIN 2.7 g/dL (3.4-5.0); ALKALINE PHOSPHATASE 84 Units/L (46-116); ASPARTATE AMINO TRANSFERASE 10 Units/L (15-37); BLOOD UREA NITROGEN 6 mg/dL (7-18); CALCIUM 7.9 mg/dL (8.5-10.1); CARBON DIOXIDE 27.5 mmol/L (21-32); CHLORIDE 108 mmol/L (98-107); COR CA(FOR HYPOALB) 8.9 mg/dL (8.5-10.1); COR NA(FOR HYPERGLY) 143 mmol/L (136-145); CREATININE 0.86 mg/dL (0.55-1.02); SODIUM 143 mmol/L (136-145); TOTAL PROTEIN 6.2 g/dL (6.4-8.2); eGFR NON BLACK RACES > 60 (>60)
[2018-02-17] MEDS: CARAFATE ORAL SUSP PO SCH ×2 (06:35→11:00)
[2018-02-17] MEDS: NS 1000 ML 1,000 ML IV SCH ×2 (07:27→08:42)
[2018-02-17 08:02] VITALS: BP 125/60
[2018-02-17] MEDS ORDERED: SYNTHROID 100 mcg TAB PO SCH ×2 (08:30)
[2018-02-17] MEDS: K-DUR TAB 20 MEQ PO SCH (08:44)
[2018-02-17] MEDS: RANEXA PO SCH (08:44)
[2018-02-17] MEDS: PROzac PO SCH (08:44)
[2018-02-17] MEDS: LIPITOR TAB 10 MG PO SCH (08:44)
[2018-02-17] MEDS: PLAVIX PO SCH (08:45)
[2018-02-17] MEDS: NICOTINE PATCH TD SCH (08:45)
[2018-02-17] MEDS: PROTONIX INJ 40 MG VIAL IVP SCH (08:45)
[2018-02-17] MEDS: LOVENOX INJ 40 MG SYR SC SCH (08:49)
[2018-02-17] MEDS: TYLENOL 325 MG TAB PO PRN (08:51)
[2018-02-17] MEDS ORDERED: DIFLUCAN PO SCH (11:00)
== END 2018-02-17 11:31 | disposition home or self-care (01) ==
LOC: MED/SURG
PROVIDERS: ADMIT Internal Medicine; ATTEND Internal Medicine
DX: R51 Headache; E86.0 Dehydration; E11.8 Type 2 diabetes mellitus with unspecified complications; R53.1 Weakness; J44.9 Chronic obstructive pulmonary disease, unspecified; R82.998 Other abnormal findings in urine; R10.9 Unspecified abdominal pain; K52.9 Noninfective gastroenteritis and colitis, unspecified; K20.9 Esophagitis, unspecified; E03.9 Hypothyroidism, unspecified
CPT/HCPCS: 36415; 71010; 71045; 74177; 80053; 81001; 82150; 83690; 85025; 94640; 94669; 94760; 96372; 96374; A4217; A4222; C9113; S0030; G0378; J1650; J2550; J3490; J7030; J7620